=== PATIENT | female | born 1970 | race Caucasian/White ===

== ENCOUNTER 2023-08-20 09:50 | Outpatient (OUT) | payer OTHER, SELFPAY ==
--- NOTE | 2023-08-20 09:52 | MM_ITS ---
Patient: PEDRO LUNA Exam Date: 08/20/2023 : 1970 Gender:F Ordering : DOM Leon . Admission #: [id number] Family : Order #: [id number] CLICK HERE TO VIEW EXAM RADIOLOGY REPORT PROCEDURE: MM TOMOSYNTHESIS DIAGNOSTIC BI COMPARISON: MG MAMM DIAGNOSTIC 3D KAREY CAD, 08/08/2021. MG MAMM DX 3D RT CAD, 02/06/2022. INDICATIONS: Breast Pain N64.4 Calculator Name NCI Breast Cancer Risk Assessment Tool 5 Year Breast Cancer Risk 1.10% Lifetime Breast Cancer Risk 10.50% Personal Breast Cancer No Personal Ovarian Cancer No Treatments None Family Cancers Aunt-maternal with breast cancer at age 52; Mother with ovarian cancer at age 32; Father with colon cancer at age 48; Grandfather-paternal with brain cancer at age 80; Brother with lung cancer at age 48. LOCATION: [facility] BREAST COMPOSITION: Heterogeneously dense,which may obscure small masses. FINDINGS: DIAGNOSTIC CATEGORY 2--BENIGN FINDING. NO CHANGE FROM COMPARISON. Scattered benign-appearing nodules are present. Scattered benign-appearing calcifications are present. Scattered benign-appearing lymph nodes are present. RIGHT BREAST: No significant suspicious finding. LEFT BREAST: No significant suspicious finding. RECOMMENDATIONS: ROUTINE MAMMOGRAM AND CLINICAL EVALUATION IN 12 MONTHS. PLEASE NOTE: A NORMAL MAMMOGRAM DOES NOT EXCLUDE THE POSSIBILITY OF BREAST CANCER. A CLINICALLY SUSPICIOUS PALPABLE LUMP SHOULD BE BIOPSIED. Dictated by: Johan Agudelo MD on 08/20/2023 at 10:29 Approved by: Johan Agudelo MD on 08/20/2023 at 10:31
== END 2023-08-20 09:51 | disposition home or self-care (01) ==
LOC: MAMMO 09:50
PROVIDERS: PCP Physician Assistant; Visit Provider Physician Assistant
DX: N64.4 Mastodynia (principal)
CPT/HCPCS: 77066; G0279

== ENCOUNTER 2025-01-05 19:17 | Emergency (ER) | payer OTHER, SELFPAY ==
[2025-01-05 19:34] VITALS: BP 126/79; PULSE 85; TEMP 36.7; O2SAT 97; BMI 31.9
--- NOTE | 2025-01-05 20:49 | ED_ITS ---
HPI HPI - Extremity Injury (Lower) General Chief Complaint: Extremity Injury, Lower Stated Complaint: right foot pain Time Seen by Provider: 01/05/25 19:42 Source: patient Mode of arrival: walk-in Limitations: no limitations History of Present Illness HPI Narrative: 54-year-old female presents for right fourth toe pain. This morning she hit it on a part of the structure of her deck at home. It has been hurting all day and she tried some ice. No other injury was sustained. Related Data Previous Rx's ?Medication ?Instructions ?Recorded ibuprofen 800 mg tablet 800 mg PO Q8H PRN pain #20 tabs 01/05/25 Allergies Allergy/AdvReac Type Severity Reaction Status Date / Time Sulfa (Sulfonamide AdvReac Intermediate Nausea Verified 01/05/25 19:39 Antibiotics) Opioid HPI Opioid Management Most Recent Pain and Opioid Data: No Data to Display Review of Systems ROS Narrative A ten point review of systems is negative except as noted above. PFSH PFSH Social History Little interest or pleasure in doing things: not at all Feeling down, depressed, or hopeless: not at all Exam Narrative Exam Narrative: Nurses note and vital signs reviewed and patient is not hypoxic. General: The patient appears well and in no apparent distress. Patient is resting comfortably on cart. Skin: Warm, dry, no pallor noted. There is no rash noted. Head: Normocephalic, atraumatic Eye: Normal conjunctiva, no drainage Ears, Nose, Mouth, and Throat: oral mucosa is moist. Nares patent. Cardiovascular: Regular Rate and Rhythm Respiratory: Patient is in no distress, no accessory muscle use, lungs are clear to auscultation, no wheezing, rales or rhonchi GI: Nontender Musculoskeletal: The right foot is examined. There is no swelling or erythema on the dorsum of her foot. She has some swelling and tenderness at the fourth toe. Skin intact. Neurological: A&O, normal speech Psychiatric: Cooperative Constitutional Vital Signs, click to edit/add: Last Vital Signs Temp 98.1 F 01/05/25 19:34 Pulse 85 01/05/25 19:34 Resp 18 01/05/25 19:34 BP 126/79 01/05/25 19:34 Pulse Ox 97 01/05/25 19:34 O2 Del Method Room Air 01/05/25 19:34 Course Vital Signs Vital signs: Vital Signs Temperature 98.1 F 01/05/25 19:34 Pulse Rate 85 01/05/25 19:34 Respiratory Rate 18 01/05/25 19:34 Blood Pressure 126/79 01/05/25 19:34 Pulse Oximetry 97 01/05/25 19:34 Oxygen Delivery Method Room Air 01/05/25 19:34 Temperature 98.1 F 01/05/25 19:34 Pulse Rate 85 01/05/25 19:34 Respiratory Rate 18 01/05/25 19:34 Blood Pressure 126/79 01/05/25 19:34 Pulse Oximetry 97 01/05/25 19:34 Oxygen Delivery Method Room Air 01/05/25 19:34 MDM - Extremity Injury (Lower) MDM Narrative Medical decision making narrative: X-rays per radiologist show no acute findings. Postop shoe applied, application checked by me and found to be appropriate, she is neurovascular intact and she was prescribed ibuprofen. Treatment diagnosis and follow-up were discussed with the patient. Differential Diagnosis Differential diagnosis: Likely fracture of toe and other (Toe sprain) Imaging Data Right foot: Radiologist's impression: No acute fracture or dislocation, dorsal soft tissue swelling overlying the metatarsal bones, mild soft tissue swelling noted to surround the phalanges of the right fourth toe Discharge Plan Discharge Chief Complaint: Extremity Injury, Lower Clinical Impression: Sprain of fourth toe of right foot Patient Disposition: Home, Self-Care Time of Disposition Decision: 20:48 Condition: Good Mode of Transportation: Private Vehicle Prescriptions / Home Meds: New ibuprofen 800 mg tablet 800 mg PO Q8H PRN (Reason: pain) Qty: 20 0RF Print Language: [place] Instructions: Sprain (ED) Referrals: Isaiah Jones MD [Primary Care Provider] - 1 week
== END 2025-01-05 21:00 | disposition home or self-care (01) ==
PROVIDERS: Emergency Provider Emergency Medicine; PCP Family Medicine
DX: S93.504A Unspecified sprain of right lesser toe(s), initial encounter (principal); W22.09XA Striking against other stationary object, initial encounter
CPT/HCPCS: 73630; 99283

== ENCOUNTER 2025-02-09 08:33 | Outpatient (OUT) | payer OTHER, SELFPAY ==
--- NOTE | 2025-02-09 08:45 | MM_ITS ---
Patient Name: PEDRO LUNA MR#: [id number] : 1970 Exam Date: 02/09/2025 Ordering Doctor: DOM Leon . RADIOLOGY REPORT PROCEDURE: MM TOMOSYNTHESIS SCREENING BI COMPARISON: MM TOMOSYNTHESIS DIAGNOSTIC BI, 08/20/2023. MG MAMM SCREEN KAREY W CAD, 03/12/2013. INDICATIONS: Screening Calculator Name NCI Breast Cancer Risk Assessment Tool 5 Year Breast Cancer Risk 1.20% Lifetime Breast Cancer Risk 10.20% Personal Breast Cancer No Personal Ovarian Cancer No Treatments None Family Cancers Aunt-maternal with breast cancer at age 52; Mother with ovarian cancer at age 32; Father with colon cancer at age 48; Grandfather-paternal with brain cancer at age 80; Brother with lung cancer at age 48. LOCATION: [facility] BREAST COMPOSITION: The breasts are heterogeneously dense,which may obscure small masses. FINDINGS: RIGHT BREAST: No significant suspicious finding. LEFT BREAST: No significant suspicious finding. DIAGNOSTIC CATEGORY 1--NEGATIVE. RECOMMENDATIONS: ROUTINE MAMMOGRAM AND CLINICAL EVALUATION IN 12 MONTHS. PLEASE NOTE: A NORMAL MAMMOGRAM DOES NOT EXCLUDE THE POSSIBILITY OF BREAST CANCER. A CLINICALLY SUSPICIOUS PALPABLE LUMP SHOULD BE BIOPSIED. Dictated by: Jim Buck DO on 02/09/2025 at 09:26 Approved by: Jim Buck DO on 02/09/2025 at 09:30
== END 2025-02-09 08:34 | disposition home or self-care (01) ==
LOC: MAMMO 08:33
PROVIDERS: PCP Family Medicine; Visit Provider Physician Assistant
DX: Z12.31 Encounter for screening mammogram for malignant neoplasm of breast (principal); Z80.3 Family history of malignant neoplasm of breast; Z80.41 Family history of malignant neoplasm of ovary; Z80.0 Family history of malignant neoplasm of digestive organs; Z80.8 Family history of malignant neoplasm of other organs or systems; Z80.1 Family history of malignant neoplasm of trachea, bronchus and lung
CPT/HCPCS: 77063; 77067

== ENCOUNTER 2025-02-15 19:24 | Outpatient (REF) | payer OTHER, SELFPAY ==
[2025-02-18 13:08] LABS: Age Gdln ACOG Testing Note (.); HPV Aptima Negative (Negative); IGP, Aptima HPV, rfx 16/18,45 Note (.)
== END 2025-02-15 19:25 | disposition home or self-care (01) ==
LOC: LAB 19:24
PROVIDERS: PCP Family Medicine; Visit Provider Nurse Practitioner Family
DX: Z01.419 Encounter for gynecological examination (general) (routine) without abnormal findings (principal)
CPT/HCPCS: 87624; 88175

== ENCOUNTER 2025-04-04 09:58 | Outpatient (OUT) | payer OTHER, SELFPAY ==
--- OUTSIDE RECORDS SUMMARY | 2025-04-04 10:03 | XMS_ITS | Encounter Summary ---
Author Organization [facility] Address [address] [place] [address] Care Team Providers Care Body Design Checker Name Role Phone Isaiah Jones MD Primary Care Provider [phone] Silvestre Washburn Unavailable [phone] Richard Parekh MD Unavailable Source Comments In the event this information is protected by the Federal Confidentiality of Alcohol and Drug AbusePatient Records regulations: The Federal rules restrict any use of the information to criminally investigate or prosecute any alcohol or drug abuse patient.[facility] Encounter Details Date Type Department Care Team (Late st Contact Info) Description 06/01/2024 Patient Msg Neurology [address] [place] [address] Provider, [facility] Botox Outreach Social History Tobacco Use Types Packs/Day Years Used Date Smoking Tobacco: Never Smokeless Tobacco: Never Alcohol Use Standard Drinks/Week Comments No 0 (1 standard drink = 0.6 oz pur e alcohol) PHQ-2 Answer Date Recorded PHQ-2 score 6 04/27/2024 Area Deprivation Index Answer Date Alvino rded National Score (1-100), lower number is lower ri sk Not on file 09/27/2020 State Score (1-10), lower number is lower risk N ot on file 09/27/2020 Data from: https://www.neighborhoodatlas.medicine.[place]/. Last address used for calculation Not on file 09/27/2020 Comments No Sex and Gender Information Value Date Recorded Sex Assigned at Not on file Legal Sex Female 11:13 AM EST Gender Identity Not on file Sexual Orientation Not on file Occupation Industry Job Start Date Job End Date Disabled Not on file Not on file Not on file documented as of this encounter Functional Status * Are you deaf or do you have serious difficulty hearing? Answer Date of Assessment Author No 11/01/2015 11:50 AM Tre Mcleod on K * Are you blind or do you have serious difficulty seeing, even when wearing glasses? Answer Date of Assessment Author No 11/01/2015 11:50 AM Tre Mcleod on K * Do you have serious difficulty walking or climbing stairs? Answer Date of Assessment Author Yes 11/01/2015 11:50 AM Tre Mcleod on K * Do you have difficulty dressing or bathing? Answer Date of Assessment Author Yes 11/01/2015 11:50 AM Tre Mcleod on K * Because of a physical, mental, or emotional condition, do you have difficulty doing errands alone such as visiting a doctor's office or shopping? Answer Date of Assessment Author Yes 11/01/2015 11:50 AM Tre Mcleod on K documented as of this encounter Mental Status * Because of a physical, mental, or emotional condition, do you have serious difficulty concentrating, remembering, or making decisions? Answer Entry Date Author Yes 11/01/2015 11:50 AM Tre Mcleod on K documented in this encounter Plan of Treatment Upcoming Encounters Date Type Department Care Team (Late st Contact Info) Description 04/18/2025 9:00 AM EDT Office Visit Rheumatology [address] [place] [address] Parul Turcios MD [address] [place] [address] /fibro fu OV 6-12months. 05/09/2025 9:00 AM EDT Office Visit Allergy [address] [place] [phone] Kaia Ansari MD [address] [place] [address] Return in about 6 months (around 05/08/2025). 06/15/2025 9:30 AM EDT Office Visit Cardiology [address] [id number] Seda Solorio APRN.NUCLEAR FUELS RESEARCH ENGINEER [address] [place] [address] 1 yr f/u documented as of this encounter Visit Diagnoses Not on filedocumented in this encounter Care Teams Body Design Checker Relationship Specialty Start Date End Date Isaiah Jones MD PCP - General Family Medicine 09/26/15 Silvestre Washburn Referring Podiatry 10/31/15 [place] [address] [place], [place] [phone] Club Concierge Cardiology 06/16/24 documented as of this encounter
--- OUTSIDE RECORDS SUMMARY | 2025-04-04 10:03 | XMS_ITS | Encounter Summary ---
Author Organization [facility] Address [address] [place] [address] Care Team Providers Care Securities Compliance Examiner Name Role Phone Isaiah Jones MD Primary Care Provider [phone] Silvestre Washburn Unavailable [phone] Farnaz Church Unavailable Unavailable Richard Parekh MD Unavailable [phone] Source Comments In the event this information is protected by the Federal Confidentiality of Alcohol and Drug AbusePatient Records regulations: The Federal rules restrict any use of the information to criminally investigate or prosecute any alcohol or drug abuse patient.[facility] Encounter Details Date Type Department Care Team (Late st Contact Info) Description 07/29/2016 Patient Msg Pain Management [address] [place], [place] [phone] [place] [address] [address] [place] [address] RE: Appointment Cancellation Request Social History Tobacco Use Types Packs/Day Years Used Date Smoking Tobacco: Never Smokeless Tobacco: Never Alcohol Use Standard Drinks/Week Comments No 0 (1 standard drink = 0.6 oz pur e alcohol) Comments No Sex and Gender Information Value [...] 9:00 AM EDT Office Visit Rheumatology [address] [place] [address] Parul Turcios MD [address] [place] [address] /daniela camilo OV 6-12months. 05/09/2025 9:00 AM EDT Office Visit Allergy [address] [place] [phone] Kaia Ansari MD [address] [place] [address] Return in about 6 months (around 05/08/2025). 06/15/2025 9:30 AM EDT Office Visit Cardiology [address] [place] [address] Seda Solorio APRN.[facility] [address] [place] [address] 1 yr f/u documented as of this encounter Visit Diagnoses Not on filedocumented in this encounter Care Teams Securities Compliance Examiner Relationship Specialty Start Date End Date Isaiah Jones MD PCP - General Family Medicine 09/26/15 Silvestre Washburn Referring Podiatry 10/31/15 Farnaz Church LISW Family Resource Specialist Primary Care 04/02/24 04/06/24 [place] [address] [place] [address] Joint Runner Cardiology 06/16/24 documented as of this encounter
--- OUTSIDE RECORDS SUMMARY | 2025-04-04 10:03 | XMS_ITS | Encounter Summary ---
Author Organization [facility] Address [address] [place] [address] Care Team Providers Care Business Transformation Consultant Name Role Phone Isaiah Jones MD Primary Care Provider [phone] Silvestre Washburn Unavailable [phone] Richard Parekh MD Unavailable [phone] Source Comments In the event this information is protected by the Federal Confidentiality of Alcohol and Drug AbusePatient Records regulations: The Federal rules restrict any use of the information to criminally investigate or prosecute any alcohol or drug abuse patient.[facility] Encounter Details Date Type Department Care Team (Late st Contact Info) Description 06/04/2024 Patient Msg Cardiology [address] [facility] [place] [address] Provider, Ccf Cardiology Appointment Reschedule Social History Tobacco Use Types Packs/Day Years [...] N ot on file 09/27/2020 Data from: https://www.neighborhoodatlas.medicine.[facility]/. Last address used for calculation Not on [...] Visit Rheumatology [address] [place] [address] Parul Turcios MD [address] [place] [address] /fibro fu OV 6-12months. 05/09/2025 9:00 AM EDT Office Visit Allergy [address] [place] [phone] Kaia Ansari MD [address] [place] [address] Return in about 6 months (around 05/08/2025). 06/15/2025 9:30 AM EDT Office Visit Cardiology [address] [phone] Seda Solorio APRN.GRAB OPERATOR [address] [place] [address] 1 yr f/u documented as of this encounter Visit Diagnoses Not on filedocumented in this encounter Care Teams Business Transformation Consultant Relationship Specialty Start Date End Date Isaiah Jones MD PCP - General Family Medicine 09/26/15 Silvestre Washburn Referring Podiatry 10/31/15 [place] [address] [place], [place] [phone] Sequins Winder Cardiology 06/16/24 documented as of this encounter
--- OUTSIDE RECORDS SUMMARY | 2025-04-04 10:03 | XMS_ITS | Encounter Summary ---
Author Organization [facility] Address [address] [place] [address] Care Team Providers Care Game Tester Name Role Phone Isaiah Jones MD Primary Care Provider [phone] Silvestre Washburn Unavailable [phone] Farnaz Church Unavailable Unavailable Richard Parekh MD Unavailable [phone] Source Comments In the event this information is protected by the Federal Confidentiality of Alcohol and Drug AbusePatient Records regulations: The Federal rules restrict any use of the information to criminally investigate or prosecute any alcohol or drug abuse patient.[facility] Encounter Details Date Type Department Care Team (Late st Contact Info) Description 09/25/2022 Patient Msg Allergy [address] [place] [phone] Kaia Ansari MD [facility] [place] [address] lab results Social History Tobacco Use Types Packs/Day Years Used Date Smoking Tobacco: Never Smokeless Tobacco: Never Alcohol Use Standard Drinks/Week Comments No 0 (1 standard drink = 0.6 oz pur e alcohol) Area Deprivation Index Answer Date Alvino rded National Score (1-100), lower number is lower ri sk Not on file 09/27/2020 State Score (1-10), lower number is lower risk N ot on file 09/27/2020 Data from: https://www.neighborhoodatlas.medicine.[facility]/. Last address used for calculation Not on file 09/27/2020 Comments No Sex and Gender Information Value Date Recorded Sex Assigned at Not on file Legal Sex Female 11:13 AM EST Gender Identity Not on file Sexual Orientation Not on file Occupation Industry Job Start Date Job End Date Disabled Not on file Not on file Not on file COVID-19 Exposure Response Date Recorded In the last 10 days, have yo u been in contact with someone who was confirmed or suspected to have Coronavirus/COVID-19? No / Unsure 09/18/2022 2:10 PM EST documented as of this encounter Functional Status [...] 9:00 AM EDT Office Visit Rheumatology [address] [facility] [address] Parul Turcios MD [address] [facility] [place] [place] [address] /fibro fu OV 6-12months. 05/09/2025 9:00 AM EDT Office Visit Allergy [address] [facility] [address] Kaia Ansari MD [address] [place] [address] Return in about 6 months (around 05/08/2025). 06/15/2025 9:30 AM EDT Office Visit Cardiology [address] [place] [address] Seda Solorio APRN.[facility] [address] [place], [place] [address] 1 yr f/u documented as of this encounter Visit Diagnoses Not on filedocumented in this encounter Care Teams Game Tester Relationship Specialty Start Date End Date Isaiah Jones MD PCP - General Family Medicine 09/26/15 Silvestre Washburn Referring Podiatry 10/31/15 Farnaz Church LISW Production Ski Repairer Primary Care 04/02/24 04/06/24 [place] [address] [place] [address] Data Compiler Cardiology 06/16/24 documented as of this encounter
--- OUTSIDE RECORDS SUMMARY | 2025-04-04 10:04 | XMS_ITS | Encounter Summary ---
Author Organization [facility] Address [address] [place] [address] Care Team Providers Care Certified Driver Examiner Name Role Phone Isaiah Jones MD Primary Care Provider [phone] Silvestre Washburn Unavailable [phone] Farnaz Church Unavailable Unavailable Richard Parekh MD Unavailable [phone] Source Comments In the event this information is protected by the Federal Confidentiality of Alcohol and Drug AbusePatient Records regulations: The Federal rules restrict any use of the information to criminally investigate or prosecute any alcohol or drug abuse patient.[facility] Encounter Details Date Type Department Care Team (Late st Contact Info) Description 04/14/2018 Patient Msg Pediatrics [place] [address] [place] [address] Provider, Justin Two year Thyroid follow up Social History Tobacco Use Types Packs/Day Years [...] 9:00 AM EDT Office Visit Rheumatology [address] [place] [address] Parul Turcios MD [address] [place] [address] /fibro fu OV 6-12months. 05/09/2025 9:00 AM EDT Office Visit Allergy [address] [place] [address] Kaia Ansari MD [address] [place] [address] Return in about 6 months (around 05/08/2025). 06/15/2025 9:30 AM EDT Office Visit Cardiology [address] [place] [address] Seda Solorio APRN.[facility] [address] [place] [address] 1 yr f/u documented as of this encounter Visit Diagnoses Not on filedocumented in this encounter Care Teams Certified Driver Examiner Relationship Specialty Start Date End Date Isaiah Jones MD PCP - General Family Medicine 09/26/15 Silvestre Washburn Referring Podiatry 10/31/15 Farnaz Church LISW Manager Intranet Primary Care 04/02/24 04/06/24 [place] [address] [place] [address] It Systems Analyst Consultant Cardiology 06/16/24 documented as of this encounter
--- OUTSIDE RECORDS SUMMARY | 2025-04-04 10:04 | XMS_ITS | Clinical Summary ---
Author Organization [facility] Address [address] [place] [address] Phone Care Team Providers Care Roller Presser Operator Name Role Phone Unavailable Primary Care Provider Unavailabl e Encounters Date Type Department Care Team Description 03/03/2025 Transcribe Orders [facility] [address] [place] [address] Richard Parekh MD Encounter for screening for cardiovascular disorders (Primary Dx) from Last 3 Months Social History Tobacco Use Types Packs/Day Years Used Date Smoking Tobacco: Never Assessed Comments Unknown Sex and Gender Information Value Date Recorded Sex Assigned at Not on file Legal Sex Female 2:57 PM EDT Gender Identity Not on file Sexual Orientation Not on file Plan of Treatment Upcoming Encounters Date Type Department Care Team (Late st Contact Info) Description 04/20/2025 7:30 PM EDT Appointment [address] [phone] Health Maintenance Due Date Last Done Comments CT Colonography 1972 Colonoscopy 1972 Colorectal Cancer Screening 1972 FIT-DNA (Cologuard) 1972 FIT 1972 HIV Screening 1972 Lipid Panel 1972 Sigmoidoscopy 1972 Yearly Adult Physical 1972 MMR Vaccines (1 of 1 - Stand kenny series) 1973 Hepatitis C Screening 1990 Hepatitis B Vaccines (1 of 3 - 19+ 3-dose series) 1991 Cervical Cancer Screening 1993 HPV/Cotest 1993 Pap Smear 1993 DTaP/Tdap/Td Vaccines (1 - Tdap) 1994 Mammogram 2012 Pneumococcal Vaccine (1 of 1 - PCV) 2022 Zoster Vaccines (1 of 2) 2022 COVID-19 Vaccine (1 - 2023-2 5 season) 2024 Influenza Vaccine (Season Ended) 2025 HIB Vaccines Aged Out No longer eligi ble based on patient's age to complete this topic HPV Vaccines Aged Out No longer eligi ble based on patient's age to complete this topic Hepatitis A Vaccines Aged Out No long er eligible based on patient's age to complete this topic IPV Vaccines Aged Out No longer eligi ble based on patient's age to complete this topic Meningococcal Vaccine Aged Out No gentry cathleen eligible based on patient's age to complete this topic Rotavirus Vaccines Aged Out No longer eligible based on patient's age to complete this topic Insurance
--- OUTSIDE RECORDS SUMMARY | 2025-04-04 10:04 | XMS_ITS | Encounter Summary ---
Author Organization [facility] Address [address] [place] [address] Care Team Providers Care Operating Room Coordinator Name Role Phone Isaiah Jones MD Primary Care Provider [phone] Silvestre Washburn Unavailable [phone] Farnaz Church Unavailable Unavailable Richard Parekh MD Unavailable [phone] Source Comments In the event this information is protected by the Federal Confidentiality of Alcohol and Drug AbusePatient Records regulations: The Federal rules restrict any use of the information to criminally investigate or prosecute any alcohol or drug abuse patient.[facility] Encounter Details Date Type Department Care Team (Late st Contact Info) Description 05/20/2023 Patient Msg Gastroenterology [address] [place] [phone] ProviderJustin EGTre 05/27 please arrive at 9am Social History Tobacco Use Types Packs/Day Years [...] N ot on file 09/27/2020 Data from: https://www.neighborhoodatlas.medicine.[facility].edu/. Last address used for calculation Not on [...] Visit Rheumatology [address] [place] [address] Parul Turcios MD [address] [place] [address] /fibro fu OV 6-12months. 05/09/2025 9:00 AM EDT Office Visit Allergy [address] [place] [address] Kaia Ansari MD [address] [place], [place] [phone] Return in about 6 months (around 05/08/2025). 06/15/2025 9:30 AM EDT Office Visit Cardiology [address] [place], [place] [phone] Seda Solorio APRN.TOMOGRAPHIC TECH [address] [place] [address] 1 yr f/u documented as of this encounter Visit Diagnoses Not on filedocumented in this encounter Care Teams Operating Room Coordinator Relationship Specialty Start Date End Date Isaiah Jones MD PCP - General Family Medicine 09/26/15 Silvestre Washburn Referring Podiatry 10/31/15 Farnaz Church LISW Manager Epic Primary Care 04/02/24 04/06/24 [place] [address] [place], [place] [phone] Group Fitness Instructor Cardiology 06/16/24 documented as of this encounter
--- OUTSIDE RECORDS SUMMARY | 2025-04-04 10:04 | XMS_ITS | Encounter Summary ---
Author Organization [facility] Address [facility] [place] [address] Care Team Providers Care Spin Table Operator Name Role Phone Isaiah Jones MD Primary Care Provider [phone] Silvestre Washburn Unavailable [phone] Farnaz Church Unavailable Unavailable Richard Parekh MD Unavailable [phone] Source Comments In the event this information is protected by the Federal Confidentiality of Alcohol and Drug AbusePatient Records regulations: The Federal rules restrict any use of the information to criminally investigate or prosecute any alcohol or drug abuse patient.[facility] Encounter Details Date Type Department Care Team (Late st Contact Info) Description 01/10/2016 Patient Msg Neurology [address] [place], [place] [id number] Nicole Robles(Hist) [facility]0 [place] [phone] RE: Request an Appointment Social History Tobacco Use Types Packs/Day Years [...] 9:00 AM EDT Office Visit Rheumatology [address] [place] [address] Parul Turcios MD [address] [place] [address] /fibro fu OV 6-12months. 05/09/2025 9:00 AM EDT Office Visit Allergy [address] [place] [phone] Kaia Ansari MD [address] [place] [address] Return in about 6 months (around 05/08/2025). 06/15/2025 9:30 AM EDT Office Visit Cardiology [address] [place] [address] Seda Solorio APRN.[facility] [address] [place] [address] 1 yr f/u documented as of this encounter Visit Diagnoses Not on filedocumented in this encounter Care Teams Spin Table Operator Relationship Specialty Start Date End Date Isaiah Jones MD PCP - General Family Medicine 09/26/15 Silvestre Washburn Referring Podiatry 10/31/15 Farnaz Church LISW Electric Tripper Machine Operator Primary Care 04/02/24 04/06/24 [place] [address] [place] [address] Library Paraprofessional Cardiology 06/16/24 documented as of this encounter
--- OUTSIDE RECORDS SUMMARY | 2025-04-04 10:04 | XMS_ITS | Encounter Summary ---
Author Organization [facility] Address [address] [place] [address] Care Team Providers Care Market News Reporter Name Role Phone Isaiah Jones MD Primary Care Provider [phone] Silvestre Washburn Unavailable [phone] Farnaz Church Unavailable Unavailable Richard Parekh MD Unavailable [phone] Source Comments In the event this information is protected by the Federal Confidentiality of Alcohol and Drug AbusePatient Records regulations: The Federal rules restrict any use of the information to criminally investigate or prosecute any alcohol or drug abuse patient.[facility] Encounter Details Date Type Department Care Team (Late st Contact Info) Description 05/05/2023 [place] [address] Provider, [facility] MRI Screening Questionnaire Completion Required Social History Tobacco Use Types Packs/Day Years Used Date Smoking Tobacco: Never Smokeless Tobacco: Never Alcohol Use Standard Drinks/Week Comments No 0 (1 standard drink = 0.6 oz pur e alcohol) Area Deprivation Index Answer Date Alvino rded National Score (1-100), lower number is lower ri Not on file 09/27/2020 State Score (1-10), lower number is lower risk N ot on file 09/27/2020 Data from: https://www.neighborhoodatlas.[facility].edu/. Last address used for calculation Not on [...] of Assessment Author No 11/01/2015 11:50 AM Ter M[place] on K * Do you have [...] 9:00 AM EDT Office Visit Rheumatology [address] [place] [address] Parul Turcios MD [address] [facility] [address] /fibro fu OV 6-12months. 05/09/2025 9:00 AM EDT Office Visit Allergy [address] [place] [phone] Kaia Ansari MD [address] [place], [place] [phone] Return in about 6 months (around 05/08/2025). 06/15/2025 9:30 AM EDT Office Visit Cardiology [address] [place], [place] [phone] Seda Solorio APRN.[facility] [address] [place], [place] [id number] 1 yr f/u documented as of this encounter Visit Diagnoses Not on filedocumented in this encounter Care Teams Market News Reporter Relationship Specialty Start Date End Date Isaiah Jones MD PCP - General Family Medicine 09/26/15 Silvestre Washburn Referring Podiatry 10/31/15 Farnaz Church LISW Youth Leader Primary Care 04/02/24 04/06/24 [place] [address] [place] [address] Department Clerk Cardiology 06/16/24 documented as of this encounter
--- OUTSIDE RECORDS SUMMARY | 2025-04-04 10:04 | XMS_ITS | Encounter Summary ---
Author Organization [facility] Address [address] [place] [address] Care Team Providers Care Insurance Legal Assistant Name Role Phone Isaiah Jones MD Primary Care Provider [phone] Silvestre Washburn Unavailable [phone] Farnaz Church Unavailable Unavailable Richard Parekh MD Unavailable Source Comments In the event this information is protected by the Federal Confidentiality of Alcohol and Drug AbusePatient Records regulations: The Federal rules restrict any use of the information to criminally investigate or prosecute any alcohol or drug abuse patient.[facility] Encounter Details Date Type Department Care Team (Late st Contact Info) Description 03/25/2024 Patient Msg Family Medicine [address] [place], [place] [phone] Provider, [facility] Appointment Reschedule Required-Provider Out Sick Social History Tobacco Use Types Packs/Day Years Used Date Smoking Tobacco: Never Smokeless Tobacco: Never Alcohol Use Standard Drinks/Week Comments No 0 (1 standard drink = 0.6 oz pur e alcohol) PHQ-2 Answer Date Recorded PHQ-2 score 3 12/24/2023 Area Deprivation Index Answer Date Alvino rded National Score (1-100), lower number is lower ri sk Not on file 09/27/2020 State Score (1-10), lower number is lower risk N ot on file 09/27/2020 Data from: https://www.neighborhoodatlas.medicine.[facility]/. Last address used for calculation Not [...] EDT Office Visit Rheumatology [address] [place] [address] Parul Turcios MD [address] [place] [address] /daniela camilo OV 6-12months. 05/09/2025 9:00 AM EDT Office Visit Allergy [address] [place] [phone] Kaia Ansari MD [facility] [place] [address] Return in about 6 months (around 05/08/2025). 06/15/2025 9:30 AM EDT Office Visit Cardiology [address] [place], [place] [phone] Seda Solorio, PASCALE.HEARING DOG TRAINER [address] [place], [place] [phone] 1 yr f/u documented as of this encounter Visit Diagnoses Not on filedocumented in this encounter Care Teams Insurance Legal Assistant Relationship Specialty Start Date End Date Isaiah Jones MD PCP - General Family Medicine 09/26/15 Silvestre Washburn Referring Podiatry 10/31/15 Farnaz Church LISW Butcher Scullion Primary Care 04/02/24 04/06/24 [place] [address] [place] [address] Blanket Folder Cardiology 06/16/24 documented as of this encounter
--- OUTSIDE RECORDS SUMMARY | 2025-04-04 10:04 | XMS_ITS | Encounter Summary ---
Author Organization [facility] Address [address] [place] [address] Care Team Providers Care Hydroelectric Station Operator Chief Name Role Phone Isaiah Jones MD Primary Care Provider [phone] Silvestre Washburn Unavailable [phone] Farnaz Church Unavailable Unavailable Richard Parekh MD Unavailable [phone] Source Comments In the event this information is protected by the Federal Confidentiality of Alcohol and Drug AbusePatient Records regulations: The Federal rules restrict any use of the information to criminally investigate or prosecute any alcohol or drug abuse patient.[facility] Encounter Details Date Type Department Care Team (Late st Contact Info) Description 04/11/2023 Patient Msg Gastroenterology [address] [place] [phone] Abraham Velasco MD [address] [place] [address] lab results Social History Tobacco Use Types [...] N ot on file 09/27/2020 Data from: https://www.neighborhoodatlas.medicine.[facility]/. Last address used for calculation [...] 9:00 AM EDT Office Visit Rheumatology [address] [facility] [place] [address] Parul Turcios MD [address] [facility] [address] [place] [phone] /fibro fu OV 6-12months. 05/09/2025 9:00 AM EDT Office Visit Allergy [address] [place] [phone] Kaia Ansari MD [address] [place] [address] Return in about 6 months (around 05/08/2025). 06/15/2025 9:30 AM EDT Office Visit Cardiology [address] [place], [place] [phone] Seda Solorio APRN.PRODUCTION TEAM MEMBER [address] [place], [place] [phone] 1 yr f/u documented as of this encounter Visit Diagnoses Not on filedocumented in this encounter Care Teams Hydroelectric Station Operator Chief Relationship Specialty Start Date End Date Isaiah Jones MD PCP - General Family Medicine 09/26/15 Silvestre Washburn Referring Podiatry 10/31/15 Farnaz Church LISW Defect Cutter Primary Care 04/02/24 04/06/24 [place] [address] [place] [address] Vp Integrity Cardiology 06/16/24 documented as of this encounter
--- OUTSIDE RECORDS SUMMARY | 2025-04-04 10:04 | XMS_ITS | Clinical Summary ---
Author Organization [facility] Address [id number] [address] [place] [address] Care Team Providers Care Pediatric Nurse Practitioner Name Role Phone Isaiah Jones MD Primary Care Provider [phone] Allergies Active Allergy Reactions Criticality Noted Date Comments Betamethasone Dipropionate Other reaction(s): GI Upset Chicken Derived 11/26/2021 Other reaction(s): Other: See Comments states throat closes up Egg 11/26/2021 Other reaction(s): Other: See Comments states throat closes up Sulfa (Sulfonamide Antibiotics) GI Disturbance 04/15/2017 Abd Pain Medications ergocalciferol (DRISDOL) 1,250 mcg (50,000 unit) capsule Take 1 capsule (50,000 Units total) by mouth once a week. 02/10/2017 Active magnesium oxide (MAGOX) 400 mg tablet Take 1 tablet (400 mg total) by mouth in the morning. 03/04/2017 Active sucralfate (CARAFATE) 1 gram tablet 5 01/22/2018 Active pantoprazole (PROTONIX) 40 mg EC tablet 5 01/21/2018 Active gabapentin (NEURONTIN) 300 mg capsule 5 01/22/2018 Active fluticasone (FLONASE) 50 mcg/actuation nasal spray 5 01/15/2018 Active baclofen (LIORESAL) 10 mg tablet 5 01/08/2018 Active FIBER-LAX 625 mg tablet 5 01/01/2018 Active topiramate (TOPAMAX) 100 mg tablet Take 1 tablet (100 mg total) by mouth in the morning. 6 02/06/2018 Active venlafaxine XR (EFFEXOR-XR) 75 mg 24 hr capsule Take 1 capsule (75 mg total) by mouth in the morning. 01/20/2018 Active cholecalciferol (VITAMIN D3) 50,000 units capsule 5 12/28/2018 Active montelukast (SINGULAIR) 10 mg tablet Take 1 tablet (10 mg total) by mouth nightly. 4 03/10/2019 Active nabumetone (RELAFEN) 500 mg tablet Take 1 tablet (500 mg total) by mouth in the morning and 1 tablet (500 mg total) before bedtime. 5 03/10/2019 Active salsalate (DISALCID) 500 mg tabletIndication s:H/O Enedina thyroiditis TAKE 1 TABLET BY MOUTH TWICE DAILY 60 tablet 07/04/2020 Active amitriptyline (ELAVIL) 25 mg tablet Take 1 tablet (25 mg total) by mouth nightly. 07/26/2020 Active famotidine (PEPCID) 40 mg tablet 07/31/2020 Active PREMARIN 0.625 mg tablet Take 1 tablet (0.625 mg total) by mouth in the morning. 07/12/2021 Active levothyroxine (SYNTHROID, LEVOTHROID) 137 MCG tabletIndication s:Hypothyroidism , unspecified type TAKE 1 TABLET(137 MCG) BY MOUTH DAILY 30 tablet 5 08/26/2022 Active albuterol (PROVENTIL HFA;VENTOLIN HFA) 90 mcg/actuation inhaler 10/17/2022 Active fexofenadine (IZZY) 180 mg tablet Take 1 tablet (180 mg total) by mouth daily as needed. 09/18/2022 Active furosemide (LASIX) 40 mg tablet Take 1 tablet (40 mg total) by mouth daily as needed. 09/04/2022 Active rizatriptan (MAXALT) 10 mg tablet Take 1 tablet (10 mg total) by mouth. 11/26/2021 Active EPINEPHrine (EPIPEN) 0.3 mg/0.3 mL auto-injector 09/18/2022 Activ e Active Problems Problem Noted Date Diagnosed Date Left axillary pain 03/02/2025 Abnormal mammogram of left breast 03/02/2025 Encounters Date Type Department Care Team Description 03/16/2025 8:05 AM EDT - 03/16/2025 11:59 PM EDT Hospital Encounter [facility] - MRI Imaging [address] [place] [phone] Valeriy Castellano, Family history of breast cancer in sister; Abnormal mammogram of left breast; Left axillary pain Discharge Disposition: Home 03/16/2025 Telephone [facility] [address] [place] [phone] Loida Adan CMA 03/16/2025 Travel 03/02/2025 11:00 AM EDT Office Visit [facility] [address] [place] [phone] Valeriy Castellano, Left axillary pain (Primary Dx); Abnormal mammogram of left breast; Family history of breast cancer in sister; Family history of malignant neoplasm of ovary in first degree relative; Family history of colon cancer in father; History of fibromyalgia 03/02/[address] [facility] [address] [place] [phone] Whit Guerrier, [facility] (CLER[facility]) 03/02/2025 Travel 02/22/2025 9:30 AM EDT [facility]illary [facility] [employer] [address] [place] [phone] Pain 02/16/2025 9:48 PM EDT - 02/16/2025 10:17 PM EDT Emergency [facility] - Emergency [address] [place] [phone] Williams Moreno MD Acute bronchitis, unspecified organism (Primary Dx) Discharge Disposition: Home 02/16/2025 Travel 02/09/2025 8:40 AM EDT Ancillary Procedure [facility] [employer] [address] [place] [phone] Pain from Last 3 Months Family History Medical History Relation Name Comments Heart disease Brother 1 Carlos Heart disease Brother 2 Gray Lung cancer Brother 3 Fortino Taylor Learning disabilities Daughter Tayler Cancer Father Fortino nguyễn Colon cancer Father Fortino Cataracts Maternal Aunt 1 Nati Diabetes Maternal Aunt 1 Nati Arthritis Maternal Aunt 2 Nati Asthma Maternal Aunt 2 Nati Diabetes Maternal Aunt 2 Nati Hypertension Maternal Aunt 2 Nati Kidney disease Maternal Aunt 2 Nati Dialysis Breast cancer Maternal Aunt 3 Louvenia Hypertension Maternal Grandmother Shireen Cancer Mother Colette Pitts ovarian Heart disease Mother Colette Pitts Miscarriages / Stillbirths Mother Colette Bolivar nd Ovarian cancer Mother Colette Pitts Uterine cancer Mother Colette Pitts Mental illness Paternal Grandmother Sophie Patel Glaucoma Neg Hx Macular degeneration Neg Hx Retinal detachment Neg Hx Strabismus Neg Hx Relation Name Status Comments Brother 1 Carlos Alive Brother 2 Gray Alive Brother 3 Fortino Taylor Alive Daughter Tayler Alive Father Fortino Alive Maternal Aunt 1 Nati Maternal Aunt 2 Nati Alive Maternal Aunt 3 Louvenia Alive Maternal Grandmother Shireen Alive Mother Colette Pitts Paternal Grandmother Sophie Patel Alive Social History Tobacco Use Types Packs/Day Years Used Date Smoking Tobacco: Never Smokeless Tobacco: Never Tobacco Cessation:Counseling Given: Not Answered Alcohol Use Standard Drinks/Week Comments No 0 (1 standard drink = 0.6 oz pur e alcohol) PHQ-2 Answer Date Recorded Total Score 0 08/01/2021 Childcare Answer Date Recorded Childcare Unknown 03/24/2019 Employment Answer Date Recorded Employment Unknown 03/24/2019 Hunger Screening Answer Date Recorded Within the past 12 months we worried whether our food would run out before we got money to buy more. Never True 02/16/2025 Within the past 12 months th e food we bought just didn't last and we didn't have money to get more. Never True 02/16/2025 Purpose - Life Answer Date Recorded Purpose and direction in life Unknown Comments No Sex and Gender Information Value Date Recorded Sex Assigned at Female 07/21/2018 8:42 AM EDT Legal Sex Female 9:04 PM EDT Gender Identity Female 07/21/2018 8:42 AM EDT Sexual Orientation Straight 07/21/2018 8: 42 AM EDT Last Filed Vital Signs Vital Sign Reading Time Taken Comments Blood Pressure 179/95 02/16/2025 9:53 PM EDT Pulse 80 02/16/2025 9:53 PM EDT Temperature 36.9 C (98.4 F) 02/16/2025 9:53 PM EDT Respiratory Rate 16 02/16/2025 9:53 PM EDT Oxygen Saturation 96% 02/16/2025 9:53 PM EDT Inhaled Oxygen Concentration - - Weight 83.9 kg (185 lb) 03/16/2025 8:16 AM EDT Height 162.6 cm (5' 4 ) 03/02/2025 10:40 AM EDT Body Mass Index 31.76 03/02/2025 10:40 AM EDT Plan of Treatment Upcoming Encounters Date Type Department Care Team (Late st Contact Info) Description 04/14/2025 8:00 AM EDT Appointment [facility] - Radiation Oncology [address] [place] [address] Susanna Weller, [facility] [address] [address] Health Maintenance Due Date Last Done Comments Depression Screening 1984 Adult BMI Follow Up Plan 1990 DTaP,Tdap and Td Vaccines (1 - Tdap) 1991 Zoster (Shingles) Vaccine (1 of 2) 2022 Colonoscopy 02/14/2025 02/14/2022, 04/2 05/2022, 02/02/2018 Influenza Vaccine 06/20/2025 08/03/2024, , 08/09/2011 Tobacco Screening 03/02/2026 03/02/2025 Adult BMI Screening 03/16/2026 03/16/2025 Pap Smear Discontinued 02/15/2025, 08/06/2022 Medical Devices Not on file Procedures Procedure Name Priority Date/Time Associated Diagnosis Comments MR BREAST BILAT W WO CONT W CAD Routine 03/16/2025 8:45 AM EDT Family history of breast cancer in sister Abnormal mammogram of left breast Left axillary pain US BREAST LT LIMITED Routine 02/22/2025 9:30 AM EDT Pain SARS/FLU A+B/RSV BY NAAT/MOLECULAR (M4RT COLLECTION TUBE) STAT 02/16/2025 10:06 PM EDT MAMM SCREENING BILATERAL W CAD Routine 02/09/2025 8:40 AM EDT Pain COLONOSCOPY 02/14/2022 9:44 AM EDT from Last 3 Months or Most Recently Relevant to Health Maintenance Results * MR bilateral breast with and without contrast with CAD (03/16/2025 8:45 AM EDT) Anatomical Region Laterality Modality Breast Bilateral Magnetic Resonan ce 03/16/2025 10:0 4 AM EDT Narrative 03/16/2025 10:17 AM EDT ANNI FUNG 1970 [id number] EXAM: MR BREAST BILAT W WO CONT W CAD, 03/16/2025 8:16 AM INDICATION: Left axillary mass., COMPARISON: A screening mammogram was performed on 02/09/2025. This was done at outside facility, [facility]. Report of this examination is not available at this time. As this was a screening mammogram, presumably the patient was asymptomatic at that time. Patient had a bilateral axillary ultrasound at outside facility, [facility], dated 02/22/2025. At that time patient reported tenderness in the left axillary tail region. Report of that exam indicates possible abnormal lymph node 1:00 left axillary tail. TECHNIQUE: Breast images obtained utilizing a 1.5T MRI with dedicated breast coil. Three-dimensional, high resolution fat suppressed T1 weighted images were obtained prior to, immediately following, and after sequential delays relative to intravenous gadolinium contrast administration. Precontrast STIR and non-fat suppressed T1 axial images were also obtained. 3D image and subtraction processing were performed using [employer] software. The images were interpreted using image subtraction, reregistration, multiplanar reconstruction, 2D and 3D acquisition and subtracted MIP, HERLINDA, Time Activity curves and color mapping. CONTRAST VOLUME: 16.7 mL ProHance FINDINGS: There is mild background enhancement bilaterally, symmetric. The breast composition is heterogeneous fibroglandular tissue. There are numerous small foci of enhancement present diffusely throughout both breasts. The multiplicity and similarity of these foci suggest a benign proliferative process/background breast tissue enhancement. No dominant suspicious focus is present. Multiple small bilateral breast cysts are also noted. There are no dominant suspicious enhancing lesions and no significant axillary or internal mammary lymphadenopathy. The skin, nipples and chest wall are unremarkable. IMPRESSION: Normal examination. No evidence for breast cancer or other significant finding. BI-RADS: BI-RADS 1 - Negative Recommendation: Follow up with referring physician Finalized by Yaz Lau MD on 03/16/2025 10:17 AM 1 F/U REFER DR Procedure Note Yaz Lau MD - 03/16/2025 ANNI FUNG 1970 [id number] EXAM: MR BREAST BILAT W WO CONT W CAD, 03/16/2025 8:16 AM INDICATION: Left axillary mass., COMPARISON: A screening mammogram was performed on 02/09/2025. This was done at [facility]. Report of this examination is not available atthis time. As this was a screening mammogram, presumably the patient wasasymptomatic at that time. Patient had a bilateral axillary ultrasound at outside facility, [facility],dated 02/22/2025. At that time patient reported tenderness in the leftaxillary tail region. Report of that exam indicates possible abnormallymph node 1:00 left axillary tail. TECHNIQUE: Breast images obtained utilizing a 1.5T MRI with dedicatedbreast coil. Three-dimensional, high resolution fat suppressed T1 weightedimages were obtained prior to, immediately following, and after sequentialdelays relative to intravenous gadolinium contrast administration.Precontrast STIR and non-fat suppressed T1 axial images were also obtained. 3D imageand subtraction processing were performed using [employer] software. Theimages were interpreted using image subtraction, reregistration,multiplanar reconstruction, 2D and 3D acquisition and subtracted MIP, HERLINDA,Time Activity curves and color mapping. CONTRAST VOLUME: 16.7 mL ProHance FINDINGS: There is mild background enhancement bilaterally, symmetric. The breastcomposition is heterogeneous fibroglandular tissue. There are numerous small foci of enhancement present diffusely throughoutboth breasts. The multiplicity and similarity of these foci suggest abenign proliferative process/background breast tissue enhancement. Nodominant suspicious focus is present. Multiple small bilateral breast cysts are also noted. There are no dominant suspicious enhancing lesions and no significantaxillary or internal mammary lymphadenopathy. The skin, nipples and chestwall are unremarkable. IMPRESSION: Normal examination. No evidence for breast cancer or othersignificant finding. BI-RADS: BI-RADS 1 - Negative Recommendation: Follow up with referring physician Finalized by Yaz Lau MD on 03/16/2025 10:17 AM 1 F/U REFER DR us Valeriy Castellano DO IMG MRI ORDERABLES Final Re sult * Ultrasound breast limited left (02/22/2025 9:30 AM EDT) us Scanning Provider External IMG US ORDERABLES Fin al Result MANUALLY TRANSCRIBED RESULTS * SARS/FLU A+B/RSV by NAAT/Molecular (M4RT Collection Tube) (02/16/2025 10:06 PM EDT) FLU A PCR Negative Negative 02/16/2025 11:04 PM EDT [facility] FLU B PCR Negative Negative 02/16/2025 11:04 PM EDT [facility] RSV BY PCR Negative Negative 02/16/2025 11:04 PM EDT [facility] SARS COV 2 BY PCR Not Detected Not Detected 02/16/2025 11:04 PM EDT [facility] Swab Nasopharyngeal structure / Unknown 02/16/2025 10:06 PM EDT 02/16/2025 10:15 PM EDT Narrative [facility] - 02/16/2025 11:04 PM EDT The Xpert Xpress SARS-CoV-2/Flu/RSV Plus test is a rapid, multiplexed real-time RT-PCR test intended for the simultaneous qualitative detection and differentiation of SARS-CoV-2, influenza A, influenza B and respiratory syncytial virus (RSV) viral RNA from individuals suspected of respiratory viral infection consistent with COVID-19 by Their healthcare provider. This test has not been validated in asymptomatic patients. The Xpert Xpress SARS-CoV-2 test is intended for use by qualified and trained operators who are performing tests using either [employer] or [employer] systems and is limited to laboratories that meet the CLIA requirements to perform high and moderate complexity tests. The Xpert Xpress SARS-CoV-2/Flu/RSV Plus is only for use under the Food and Drug Administration's Emergency Use Authorization. Results are for the simultaneous detection and differentiation of SARS-CoV-2, influenza A, influenza B and RSV nucleic acids in clinical specimens. SARS-CoV-2, influenza A, influenza B and RSV RNA identified by this test are generally detectable in upper respiratory samples during the acute phase of infection. Positive results are Indicative of the presence of the identified virus, but do not rule out bacterial infection or co-infection with other pathogens not detected by this test. Clinical correlation with patient history and other diagnostic information is necessary to determine patient infection status. The agent detected may not be the definite cause of disease. Negative results do not preclude SARS-CoV-2, influenza A, influenza B and RSV infection and should not be used as the sole basis for treatment or other patient management decisions. Negative results must be combined with clinical observations, patient history and epidemiological information. An Invalid result may occur with specimen-associated inhibition unable to be resolved with specimen repeat. Fact Sheet for Healthcare Providers: https://www.fda.gov/media/548801/download Fact Sheet for Patients: https://www.fda.gov/media/846861/download Williams Moreno MD MICROBIOLOGY - GENERAL ORDERABL ES Final Result Performing Organization Address [facility] Co de Phone Number [facility] [address] [place] [address], * Mammography screening bilateral with CAD (02/09/2025 8:40 AM EDT) Scanning Provider External IMG MAMMOGRAPHY ORDER COLEMAN Final Result Performing Organization Address [facility] Co de Phone Number MANUALLY TRANSCRIBED RESULTS * Colonoscopy (02/14/2022 9:44 AM EDT) 02/14/2022 9:44 AM EDT Narrative PM CARDIOVASCULAR - 02/14/2022 10:12 AM EDT [facility] Patient Name: Anni Fung Procedure Date No Time: 02/14/2022 CSN : [id number] Date of : 1970 Admit Type: Outpatient Age: 51 Room: [place] [address] Gender: Female Note Status: Finalized Attending MD: Valeriy Castellano DO Procedure: Colonoscopy Indications: Screening for colorectal malignant neoplasm, Family history of colon cancer in a first-degree relative before age 60 years Providers: Valeriy Castellano DO Referring MD: Valeriy Castellano DO Medicines: Propofol per Anesthesia Complications: No immediate complications. Procedure: After I obtained informed consent, the scope was passed under direct vision. Throughout the procedure, the patient's blood pressure, pulse, and oxygen saturations were monitored continuously. The [email or web address] [id number] #[id number] ADULT COLONOSCOPE was introduced through the anus and advanced to the cecum, identified by appendiceal orifice and ileocecal valve. The colonoscopy was performed without difficulty. The patient tolerated the procedure well. The quality of the bowel preparation was excellent. Findings: The perianal and digital rectal examinations were normal. The colon (entire examined portion) appeared normal. The exam was otherwise without abnormality on direct and retroflexion views. Estimated Blood Loss: Estimated blood loss: none. Impression: - The entire examined colon is normal. - The examination was otherwise normal on direct and retroflexion views. - No specimens collected. Recommendation: - Discharge patient to home. - Patient has a contact number available for emergencies. The signs and symptoms of potential delayed complications were discussed with the patient. Return to normal activities tomorrow. Written discharge instructions were provided to the patient. - Repeat colonoscopy in 5 years for screening purposes. - Return to my office PRN. Procedure Code(s): --- Professional --- G0121, Colorectal cancer screening; colonoscopy on individual not meeting criteria for high risk Diagnosis Code(s): --- Professional --- Z12.11, Encounter for screening for malignant neoplasm of colon Z80.0, Family history of malignant neoplasm of digestive organs CPT copyright 2020 [employer]. All rights reserved. The codes documented in this report are preliminary and upon certified lactation educator review may be revised to meet current compliance requirements. DO Valeriy Meza DO 02/14/2022 10:11:51 AM Number of Addenda: 0 Note Initiated On: 02/14/2022 9:44 AM Procedure Note Valeriy Castellano DO - 02/14/[address] [facility] Patient Name: Anni Fung Procedure Date No Time: 02/14/2022 CSN : [id number] Date of : 1970 Admit Type: Outpatient Age: 51 Room: [place] [address] Gender: Female Note Status: Finalized Attending MD: Valeriy Castellano DO Procedure: Colonoscopy Indications: Screening for colorectal malignant neoplasm, Family history of colon cancer in a first-degree relative before age 60 years Providers: Valeriy Castellano DO Referring MD: Valeriy Castellano DO Medicines: Propofol per Anesthesia Complications: No immediate complications. Procedure: After I obtained informed consent, the scope was passed under direct vision. Throughout theprocedure, the patient's blood pressure, pulse, and oxygen saturations were monitored continuously. [email or web address] [id number] #[id number] ADULT COLONOSCOPE was introduced through the anus and advanced to the cecum,identified by appendiceal orifice and ileocecal valve. The colonoscopy was performed without difficulty. The patient tolerated the procedure well. The qualityof the bowel preparation was excellent. Findings: The perianal and digital rectal examinations were normal. The colon (entire examined portion) appeared normal. The exam was otherwise without abnormality on direct and retroflexion views. Estimated Blood Loss: Estimated blood loss: none. Impression: - The entire examined colon is normal. - The examination was otherwise normal on directand retroflexion views. - No specimens collected. Recommendation: - Discharge patient to home. - Patient has a contact number available for emergencies. The signs and symptoms of potential delayed complications were discussed with thepatient. Return to normal activities tomorrow. Written discharge instructions were provided to thepatient. - Repeat colonoscopy in 5 years for screeningpurposes. - Return to my office PRN. Procedure Code(s): --- Professional --- G0121, Colorectal cancer screening; colonoscopy on individual not meeting criteria for high risk Diagnosis Code(s): --- Professional --- Z12.11, Encounter for screening for malignant neoplasm of colon Z80.0, Family history of malignant neoplasm of digestive organs CPT copyright 2020 [employer]. All rights reserved. The codes documented in this report are preliminary and upon certified lactation educator reviewmay be revised to meet current compliance requirements. DO Valeriy Meza DO 02/14/2022 10:11:51 AM Number of Addenda: 0 Note Initiated On: 02/14/2022 9:44 AM us Valeriy Castellano DO GI PROCEDURE ORDERABLES Fin al Result PM CARDIOVASCULAR from Last 3 Months or Most Recently Relevant to Health Maintenance Insurance [facility] MEDICAID Care Teams Pediatric Nurse Practitioner Relationship Specialty Start Date End Date Isaiah Jones MD [address] [place] [address] PCP - General Family Medicine 02/28/25
--- OUTSIDE RECORDS SUMMARY | 2025-04-04 10:04 | XMS_ITS | Encounter Summary ---
Author Organization [facility] Address [facility] [place] [address] Care Team Providers Care Software Support Representative Name Role Phone Isaiah Jones MD Primary Care Provider [phone] Silvestre Washburn Unavailable [phone] Richard Parekh MD Unavailable [phone] Source Comments In the event this information is protected by the Federal Confidentiality of Alcohol and Drug AbusePatient Records regulations: The Federal rules restrict any use of the information to criminally investigate or prosecute any alcohol or drug abuse patient.[facility] Encounter Details Date Type Department Care Team (Late st Contact Info) Description 11/15/2024 Patient Msg Gastroenterology [address] [id number] Pam Lang MD [address] [place] [address] follow up Social History Tobacco Use Types [...] N ot on file 09/27/2020 Data from: https://www.neighborhoodatlas.medicine.[facility]/. Last address used for calculation Not [...] 9:00 AM EDT Office Visit Rheumatology [address] [facility] [address] [place], [place] [id number] Parul Turcios MD [address] [place] [id number] /fibro fu OV 6-12months. 05/09/2025 9:00 AM EDT Office Visit Allergy [address] [place] [id number] Kaia Ansari MD [address] [place] [address] Return in about 6 months (around 05/08/2025). 06/15/2025 9:30 AM EDT Office Visit Cardiology [address] [place] [address] Seda Solorio APRN.[facility] [address] [place], [place] [id number] 1 yr f/u documented as of this encounter Visit Diagnoses Not on filedocumented in this encounter Care Teams Software Support Representative Relationship Specialty Start Date End Date Isaiah Jones MD PCP - General Family Medicine 09/26/15 Silvestre Washburn Referring Podiatry 10/31/15 [place] [address] [place], [place] [phone] Cut Off Operator Scorer Cardiology 06/16/24 documented as of this encounter
--- OUTSIDE RECORDS SUMMARY | 2025-04-04 10:04 | XMS_ITS | Encounter Summary ---
Author Organization [facility] Address [address] [place] [address] Care Team Providers Care Senior Sql Server Database Developer Name Role Phone Isaiah Jones MD Primary Care Provider [phone] Silvestre Washburn Unavailable [phone] Richard Parekh MD Unavailable [phone] Source Comments In the event this information is protected by the Federal Confidentiality of Alcohol and Drug AbusePatient Records regulations: The Federal rules restrict any use of the information to criminally investigate or prosecute any alcohol or drug abuse patient.[facility] Encounter Details Date Type Department Care Team (Late st Contact Info) Description 07/11/2024 [place] [address] Provider, Ccf Questionnaire Submission Social History Tobacco Use Types Packs/Day Years [...] N ot on file 09/27/2020 Data from: https://www.neighborhoodatlas.medicine.[facility].edu/. Last address used for calculation Not on [...] Visit Rheumatology [address] [place] [address] Parul Turcios MD [address] [place] [address] /daniela camilo OV 6-12months. 05/09/2025 9:00 AM EDT Office Visit Allergy [address] [place] [address] Kaia Ansari MD [address] [place], [place] [phone] Return in about 6 months (around 05/08/2025). 06/15/2025 9:30 AM EDT Office Visit Cardiology [address] [place], [place] [phone] Seda Solorio APRN.[facility] [address] [place], [place] [phone] 1 yr f/u documented as of this encounter Visit Diagnoses Not on filedocumented in this encounter Care Teams Senior Sql Server Database Developer Relationship Specialty Start Date End Date Isaiah Jones MD PCP - General Family Medicine 09/26/15 Silvestre Washburn Referring Podiatry 10/31/15 [place] [address] [place] [address] Engine Hostler Cardiology 06/16/24 documented as of this encounter
--- OUTSIDE RECORDS SUMMARY | 2025-04-04 10:04 | XMS_ITS | Encounter Summary ---
Author Organization [facility] Address [address] [place] [address] Care Team Providers Care Receiving Weigher Name Role Phone Isaiah Jones MD Primary Care Provider [phone] Silvestre Washburn Unavailable [phone] Farnaz Church Unavailable Unavailable Richard Parekh MD Unavailable [phone] Source Comments In the event this information is protected by the Federal Confidentiality of Alcohol and Drug AbusePatient Records regulations: The Federal rules restrict any use of the information to criminally investigate or prosecute any alcohol or drug abuse patient.[facility] Encounter Details Date Type Department Care Team (Late st Contact Info) Description 04/08/2017 Patient Msg Cardiology [address] [place] [address] Cassius Omalley MD [address] [place] [phone] Request an Appointment Social History Tobacco Use [...] 9:00 AM EDT Office Visit Rheumatology [address] [place] [address] Parul Turcios MD [address] [place] [address] /fibro leslee OV 6-12months. 05/09/2025 9:00 AM EDT Office Visit Allergy [address] [place] [phone] Kaia Ansari MD [address] [place] [address] Return in about 6 months (around 05/08/2025). 06/15/2025 9:30 AM EDT Office Visit Cardiology [address] [place] [address] Seda Solorio APRN.[facility] [address] [place] [address] 1 yr f/u documented as of this encounter Visit Diagnoses Not on filedocumented in this encounter Care Teams Receiving Weigher Relationship Specialty Start Date End Date Isaiah Jones MD PCP - General Family Medicine 09/26/15 Silvestre Washburn Referring Podiatry 10/31/15 Farnaz Church LISW Powertrain Engineer Primary Care 04/02/24 04/06/24 [place] [address] [place] [address] Salon Assistant Cardiology 06/16/24 documented as of this encounter
--- OUTSIDE RECORDS SUMMARY | 2025-04-04 10:04 | XMS_ITS | Encounter Summary ---
Author Organization [facility] Address [address] [place] [address] Care Team Providers Care Ribbon Hanking Machine Operator Name Role Phone Isaiah Jones MD Primary Care Provider [phone] Silvestre Washburn Unavailable [phone] Farnaz Church Unavailable Unavailable Richard Parekh MD Unavailable [phone] Source Comments In the event this information is protected by the Federal Confidentiality of Alcohol and Drug AbusePatient Records regulations: The Federal rules restrict any use of the information to criminally investigate or prosecute any alcohol or drug abuse patient.[facility] Reason for Visit * Reason Comments Radiology XR Encounter Details Date Type Department Care Team (Late st Contact Info) Description 09/17/2021 Radiology Radiology [address] [place] [address] Guillermo Nixon, RT(R) Radiology XR Social History Tobacco Use Types Packs/Day Years [...] N ot on file 09/27/2020 Data from: https://www.neighborhoodatlas.medicine.[facility].edu/. Last address used for calculation [...] Exposure Response Date Recorded In the last month, have you been in contact with someone who was confirmed or suspected to have Coronavirus / COVID-19? No / Unsure 09/17/2021 10:48 AM EST documented as of this encounter Functional [...] of Assessment Author Yes 11/01/2015 11:50 AM rTe [facility] * Do you have [...] [facility] documented in this encounter Progress Notes * Guillermo Whitley, RT(R) - 09/17/2021 11:46 AM EST Radiology Service Progress Note PATIENT NAME: Anni Fung DATE OF SERVICE: September 17, 2021 TIME: 11:46 AM PATIENT IDENTITY VERIFICATION COMPLETED USING TWO (2) IDENTIFIERS: Name and Date of confirmedby patient verbally. FALL SCREENING: Has the patient had 2 falls in the last year or 1 fall with injury or currently using an Ambulatory Assistive Device (Walker, Cane, Wheelchair, Crutches, etc.)? No PATIENT GENDER DATA: Female. status: : No status: NO. PATIENT RELEVANT IMPLANT DATA REVIEWED: Not Applicable RADIOLOGY DEPARTMENT: General X-ray: Exam(s) Completed: Rib X-Ray: Right and Wt. Bearing Spine X-Ray(s): Cervical AP / LAT / OBL Lower Extremity X-Ray(s): Feet, Bilateral and Wt. Bearing Upper Extremity X-Ray(s): Hand, bilateral PERIPHERAL IV DATA: Not applicable SIGNED BY: RT Nasir(R) September 17, 2021 11:46 AM documented in this encounter Plan of Treatment Upcoming Encounters Date Type Department Care Team (Late st Contact Info) Description 04/18/2025 9:00 AM EDT Office Visit Rheumatology [address] [place] [address] Parul Turcios MD [address] [place] [address] /fibro fu OV 6-12months. 05/09/2025 9:00 AM EDT Office Visit Allergy [address] [place] [phone] Kaia Ansari MD [address] [place] [address] Return in about 6 months (around 05/08/2025). 06/15/2025 9:30 AM EDT Office Visit Cardiology [address] [place], [place] [phone] Seda Solorio APRN.[employer] PAN OPERATOR [address] [place] [address] 1 yr f/u documented as of this encounter Visit Diagnoses Not on filedocumented in this encounter Care Teams Ribbon Hanking Machine Operator Relationship Specialty Start Date End Date Isaiah Jones MD PCP - General Family Medicine 09/26/15 Silvestre Washburn Referring Podiatry 10/31/15 Farnaz Church LISW Rn Surgical Pcu Primary Care 04/02/24 04/06/24 [place] [address] [place] [address] Mortgage Accounting Clerk Cardiology 06/16/24 documented as of this encounter
--- OUTSIDE RECORDS SUMMARY | 2025-04-04 10:04 | XMS_ITS | Encounter Summary ---
Author Organization [facility] Address [id number] [address] [place] [address] Care Team Providers Care Densitometrist Name Role Phone Isaiah Jones MD Primary Care Provider Reason for Visit * Reason Comments Med Refill Encounter Details Date Type Department Care Team (Late st Contact Info) Description 09/13/2020 Refill [facility] [address] [place] [address] Dilip Jama MD PhD [address] [address] RETIRED 05/19/2024 [place] [address] Hypothyroidism, unspecified type Social History Tobacco Use Types Packs/Day Years Used Date Smoking Tobacco: Never Smokeless Tobacco: Never Alcohol Use Standard Drinks/Week Comments No 0 (1 standard drink = 0.6 oz pur e alcohol) PHQ-2 Answer Date Recorded Total Score 0 08/02/2020 Childcare Answer Date Recorded Childcare Unknown 03/24/2019 Employment Answer Date Recorded Employment Unknown 03/24/2019 Comments No Sex and Gender Information Value Date Recorded Sex Assigned at Female 07/21/2018 8:42 AM EDT Legal Sex Female 9:04 PM EDT Gender Identity Female 07/21/2018 8:42 AM EDT Sexual Orientation Straight 07/21/2018 8: 42 AM EDT documented as of this encounter Plan of Treatment Upcoming Encounters Date Type Department Care Team (Late st Contact Info) Description 04/14/2025 8:00 AM EDT Appointment [facility] - Radiation Oncology [address] [place] [address] Susanna Weller, [facility] [address] [address] documented as of this encounter Visit Diagnoses Diagnosis Hypothyroidism, unspecified type documented in this encounter Additional Health Concerns Assessment Noted Time PHQ-9 Depression Total Score: 0 08/02/20 20 12:52 PM EDT documented as of this encounter Care Teams Densitometrist Relationship Specialty Start Date End Date Isaiah Jones MD [address] [place] [address] PCP - General Family Medicine 02/28/25 documented as of this encounter
--- OUTSIDE RECORDS SUMMARY | 2025-04-04 10:04 | XMS_ITS | Encounter Summary ---
Author Organization [facility] Address [address] [place] [phone] Phone Care Team Providers Care Vibrator Operator Name Role Phone Unavailable Primary Care Provider Unavailabl e Reason for Referral * Imaging (Routine) - Pending Review Specialty Diagnoses / Procedures Referred By Kirill bhatt Referred To Contact Radiology Diagnoses Encounter for screening for cardiovascular disorders Procedures CT cardiac scoring [place] [address] [place] [address] Phone: tel: fax: Referral ID Status Reason Start Date Expiration Date Visits Requested Visits Authorized [id number] Pending Review Perform Procedure 03/03/2025 03/03/2026 1 1 Encounter Details Date Type Department Care Team (Late st Contact Info) Description 03/03/2025 Transcribe Orders [facility] [address] [place] [address] [place] [address] [place] [phone] Encounter for screening for cardiovascular disorders (Primary Dx) Social History Tobacco Use Types Packs/Day Years Used Date Smoking Tobacco: Never Assessed Comments Unknown Sex and Gender Information Value Date Recorded Sex Assigned at Not on file Legal Sex Female 2:57 PM EDT Gender Identity Not on file Sexual Orientation Not on file documented as of this encounter Plan of Treatment Upcoming Encounters Date Type Department Care Team (Late st Contact Info) Description 04/20/2025 7:30 PM EDT Appointment [address] [address] Scheduled Orders Name Type Priority Associated Diagnoses Orde r Schedule CT cardiac scoring wo IV contrast Imaging Routine Encounter for screening for cardiovascular disorders Expected: 03/03/2025, Expires: 03/03/2026 documented as of this encounter Visit Diagnoses Diagnosis Encounter for screening for cardiovascular disorders- Primary documented in this encounter
--- OUTSIDE RECORDS SUMMARY | 2025-04-04 10:04 | XMS_ITS | Clinical Summary ---
Author Organization [facility] Address [address] [place] [address] Care Team Providers Care Sack Department Supervisor Name Role Phone Isaiah Jones MD Primary Care Provider [phone] Silvestre Washburn Unavailable [phone] Richard Parekh MD Unavailable [phone] Allergies Active Allergy Reactions Criticality Noted Date Comments Chicken Derived Other: See Comments 11/26/2021 states throat closes up Egg Other: See Comments 11/26/2021 states throat closes up Betamethasone Dipropionate GI Upset 11/26/2021 Sulfa (Sulfonamide Antibiotics) Other: See Comments 10/10/2015 Abd Pain Medications * This document contains information received from the source organization and may not represent a complete record from that organization. PV W-O [place]/FERROUS FUMARATE/FA (M-VIT ORAL) Take by mouth. Ac tive magnesium oxide (MAGOX) 400 mg tabletIndications :Fibromyalgia,Chr onic pain syndrome,Chronic daily headache Take 1 tablet by mouth once daily. 30 tablet 11 05/11/20 18 Active amitriptyline (ELAVIL) 25 mg tablet Take 25 mg by mouth daily at bedtime. 08/14/20 21 Active PREMARIN 0.625 mg tablet Take 0.625 mg by mouth once daily. 09/04/20 21 Active levothyroxine (SYNTHROID) 137 mcg tablet TAKE 1 TABLET(137 MCG) BY MOUTH DAILY 04/17/20 21 Active montelukast (SINGULAIR) 10 mg tablet Take 10 mg by mouth. 03/10/[address] (PROTONIX) 40 mg tablet TK 1 T PO BID 01/22/20 18 Active sucralfate (CARAFATE) 1 gram tablet TK 1 T PO QID 01/23/20 18 Active venlafaxine ER (EFFEXOR XR) 75 mg 24 hr capsule Take 75 mg by mouth once daily. 05/31/20 22 Active furosemide (LASIX) 40 mg tablet Take 40 mg by mouth once daily as needed. 05/31/20 22 Active fexofenadine (IZZY) 180 mg tablet Take 1 tablet by mouth once daily as needed. 90 tablet 3 09/18/20 22 Active EPINEPHrine (EPIPEN) 0.3 mg/0.3 mL auto-injector Inject 0.3 mL intramuscularly as needed. 2 Each 1 09/18/20 22 Active rizatriptan (MAXALT) 10 mg tabletIndications :Chronic migraine without aura without status migrainosus, not intractable Take 1 tablet (10 mg) by mouth as needed. AT ONSET OF HEADACHE. MAY REPEAT AFTER 2 HOURS. DO NOT EXCEED 30 MG PER DAY. 10 tablet 11 10/02/20 23 Active baclofen 10 mg tabletIndications :Chronic pain syndrome,Chronic bilateral low back pain without sciatica,Cervical wojciech 1 pill at night by mouth, as needed for spine pain 90 tablet 3 11/13/19 24 Active nabumetone (RELAFEN) 500 mg tabletIndications :Chronic bilateral low back pain without sciatica,Cervical wojciech Take 1 tablet by mouth two times a day. 180 tablet 3 11/13/19 24 Active fluticasone propionate (XHANCE) 93 mcg/actuation nasal spray Use 1 [place] in the nose two times a day. 1 Each 4 02/02/20 24 Active ergocalciferol 50,000 unit capsule (VITAMIN D2, DRISDOL)Indicatio ns:Vitamin D deficiency Take 1 capsule by mouth one time a week. 12 capsule 3 02/11/20 24 Active aripiprazole (ABILIFY ORAL) Take by mouth. Active budesonide (EOHILIA) 2 mg/10 mL suspension in packetIndications :Eosinophilic esophagitis Take 1 Packet by mouth two times a day. Do not mix with food or liquid. 1800 mL 3 06/30/20 24 025 Active RESTASIS 0.05 % ophthalmic emulsionIndicatio ns:Chronically dry eyes, bilateral USE 1 DROP IN BOTH EYES TWICE DAILY DIRECTED 60 Each 3 10/28/19 25 Active fluticasone-umecl idin-vilanter (TRELEGY ELLIPTA) 200-62.5-25 mcg inhalation powder Inhale 1 Puff as instructed once daily. 180 Each 3 11/08/19 25 Active albuterol-budeson sabina HFA (AIRSUPRA) 90-80 mcg/actuation inhalerIndication s:Moderate persistent asthma, uncomplicated (HCC) Inhale 2 Puffs as instructed every 4 hours as needed for wheezing/shortness of breath. Do not take more than 12 inhalations in a 24 hour period. 10.7 g 3 11/08/19 25 Active pregabalin (LYRICA) 150 mg capsuleIndication s:Neuropathic pain Take 1 capsule by mouth two times a day for 180 days. 60 capsule 5 5 1:03 PM EST 11/19/19 25 025 Active CPAP/BIPAP/OTHER Type .CPAPSettings into a note to see current settings/supplies/ DME information. 1 Each 11/29/19 25 052 Active Active Problems Problem Noted Date Diagnosed Date Obesity, Class I, BMI 30-34.9 06/16/2024 Bilateral groin pain 06/14/2024 Bilateral elbow joint pain 06/14/2024 Vitamin D deficiency 06/14/2024 Chronically dry eyes, bilateral 06/14/2024 Tinnitus, bilateral 01/05/2024 Sensorineural hearing loss ( SNHL) of left ear with unrestricted hearing of right ear 01/05/2024 LESTER (obstructive sleep apnea) 11/24/2023 Chronic hip pain, bilateral 11/13/2023 Chronic pain of both knees 11/13/2023 Chronic bilateral low back pain without sciatica 11/13/2023 Nasal polyps 01/17/2023 Other chronic sinusitis 01/17/2023 ANABEL positive 09/18/2021 Family history of rheumatoid arthritis Family history of systemic lupus erythematosus 1 11/18/2020 Long-term use of high-risk medication 09/18/2021 Memory changes 09/18/2021 Costochondritis, acute 09/18/2021 New daily persistent headache 09/18/2021 Rib pain on right side 09/18/2021 Chronic pain of both feet 09/18/2021 Cervicalgia 12/30/2017 Dizziness and giddiness 12/30/2017 Small fiber neuropathy 09/10/2016 Precordial pain 05/21/2016 Bilateral hand pain 11/28/2015 Essential hypertension 11/07/2015 Recurrent major depression in partial remission 11/01/2015 Chronic pain syndrome 11/01/2015 Total body pain 11/01/2015 Heart murmur Mitral valve prolapse Fibromyalgia Anemia H/O: rheumatic fever Multiple thyroid nodules GERD (gastroesophageal reflux disease) Resolved Problems Problem Noted Date Diagnosed Date Resolved Date Arthritis 03/11/2016 Overview (11/01/2015): cervical spine Encounters Date Type Department Care Team Description 04/01/2025 Telephone [id number] [place] [address] Richard Parekh MD 03/01/2025 Orders Only Cardiology [id number] [place] [address] Richard Parekh MD Encounter for screening for cardiovascular disorders (Primary Dx) 02/28/2025 Telephone [address] [place] [address] Richard Parekh MD Orders 01/11/2025 Telephone Cardiology [address] [place] [address] Richard Parekh MD CPAP Supplies from Last 3 Months Immunizations Immunization Administration Dates Next Due influenza (IIV3) vaccine, ag e 6 mo - 64 yr, trivalent (AFLURIA, FLULAVAL, FLUVIRIN, FLUZONE) 08/03/2024 Family History Medical History Relation Comments Cancer Father Arthritis Maternal Aunt 1 Asthma Maternal Aunt 1 Diabetes Maternal Aunt 2 Heart Failure Maternal Grandmother Hypertension Maternal Grandmother Multiple Sclerosis Maternal cousin Cancer Mother Systemic Lupus Erythematosus Paternal Grandmothe r Relation Status Comments Father Maternal Aunt 1 Maternal Aunt 2 Maternal Grandmother Maternal cousin Alive Mother Paternal Grandmother Social History Tobacco Use Types Packs/Day Years [...] N ot on file 09/27/2020 Data from: https://www.neighborhoodatlas.medicine.[facility]/. Last address used for calculation Not on file 09/27/2020 Comments No Sex and Gender Information Value Date Recorded Sex Assigned at Not on file Legal Sex Female 11:13 AM EST Gender Identity Not on file Sexual Orientation Not on file Occupation Industry Job Start Date Job End Date Disabled Not on file Not on file Not on file Last Filed Vital Signs Vital Sign Reading Time Taken Comments Blood Pressure 151/99 11/19/2024 8:32 AM EST Pulse 84 11/19/2024 8:32 AM EST Temperature 36.6 C (97.9 F) 08/19/2024 10:10 AM EDT Respiratory Rate 16 08/19/2024 11:43 AM EDT Oxygen Saturation 97% 11/19/2024 8:32 AM EST Inhaled Oxygen Concentration - - Weight 84.4 kg (186 lb 1.1 oz) 11/19/2024 8:32 A M EST Height 160 cm (5' 2.99 ) 08/28/2024 1:39 AM EST Body Mass Index 32.97 08/28/2024 1:39 AM EST Plan of Treatment Upcoming Encounters Date Type Department Care Team (Late st Contact Info) Description 04/18/2025 9:00 AM EDT Office Visit Rheumatology [address] [place] [address] Parul Turcios MD [address] [place], [place] [id number] /fibro fu OV 6-12months. 05/09/2025 9:00 AM EDT Office Visit Allergy [address] [place] [phone] Kaia Ansari MD [address] [place] [address] Return in about 6 months (around 05/08/2025). 06/15/2025 9:30 AM EDT Office Visit Cardiology [address] [place] [address] Seda Solorio APRN.PREP ROOM SUPERVISOR [address] [place], [place] [id number] 1 yr f/u Health Maintenance Due Date Last Done Comments Annual PCP Team Chronic Dise ase Visit 1990 Anxiety Screening 1990 DTaP,Tdap,Td Vaccine (1 - Tdap) 1991 Hepatitis B Vaccine (1 of 3 - 19+ 3-dose series) 1991 Pneumococcal Vaccine: 50+ (1 of 2 - PCV) 1991 Cervical Cancer Screening [address] Colonography 2017 Cologuard (FIT-DNA) 2017 Fecal Occult Blood 2017 Lipid Screening 2017 Sigmoidoscopy 2017 Shingrix Vaccine (1 of 2) 2022 Colonoscopy 02/14/2023 02/14/2022 Colorectal Cancer Screening 02/14/2023 Covid-19 Vaccine (1 - 2023-2 5 season) 2024 Diabetes Screening 11/13/2026 11/13/2023, 0 04/10/2023, 12/16/2022, Additional history exists Hepatitis C Screening Completed 04/18/2016, 016 HIV Screening Completed 12/05/2017 Influenza Vaccine Completed 08/03/2024, 08/09/2011 Procedures Procedure Name Priority Date/Time Associated Diagnosis Comments COMPREHENSIVE METABOLIC PANEL Routine 11/13/2023 10:02 AM EST Elevated LFTs HIV 1/2 COMBO WITH REFLEX TO DIFFERENTIATION Routine 12/05/2017 2:58 PM EST Small fiber neuropathy (HCC) HEP REMOTE PANEL BL Routine 04/18/2016 1 :52 PM EDT Dry eyes, bilateral from Last 3 Months or Most Recently Relevant to Health Maintenance Results * (ABNORMAL) COMP METABOLIC PANEL (11/13/2023 10:02 AM EST) Protein, Total 6.9 6.3 - 8.0 g/dL 11/14/2023 6:04 AM [facility] Albumin 4.3 3.9 - 4.9 g/dL 11/14/2023 6:04 AM [facility] Calcium, Total 9.7 8.5 - 10.2 mg/dL 11/14/2023 6:04 AM [facility] Bilirubin, Total <0.2(L) 0.2 - 1.3 mg/dL 11/14/2023 6:04 AM [facility] Alkaline Phosphatase 86 34 - 123 U/L 11/14/2023 6:04 AM EST [facility] AST 15 13 - 35 U/L 11/14/2023 6:04 AM [facility] ALT 11 7 - 38 U/L 11/14/2023 6:04 AM [facility] Glucose 99 74 - 99 mg/dL 11/14/2023 6:04 AM [facility] Comment: The [place] Diabetes Association (ADA) provides guidance for cutoff values for fasting glucose and random glucose. The ADA defines fasting as no caloric intake for at least 8 hours. Fasting plasma glucose results between 100 to 125 mg/dL indicate increased risk for diabetes (prediabetes). Fasting plasma glucose results greater than or equal to 126 mg/dL meet the criteria for diagnosis of diabetes. In the absence of unequivocal hyperglycemia, results should be confirmed by repeat testing. In a patient with classic symptoms of hyperglycemia or hyperglycemic crisis, random plasma glucose results greater than or equal to 200 mg/dL meet the criteria for diagnosis of diabetes. Reference: Standards of Medical Care in Diabetes 2016, [place] Diabetes Association. Diabetes Care. 2016.39(Suppl 1). BUN 18 7 - 21 mg/dL 11/14/2023 6:04 AM [facility] Creatinine 0.67 0.58 - 0.96 mg/dL 11/14/2023 6:04 AM [facility] Sodium 143 136 - 144 mmol/L 11/14/2023 6:04 AM EST [facility] Potassium 4.6 3.7 - 5.1 mmol/L 11/14/2023 6:04 AM EST [facility] Chloride 107(H) 97 - 105 mmol/L 11/14/2023 6:04 AM EST [facility] CO2 25 22 - 30 mmol/L 11/14/2023 6:04 AM EST [facility] Anion Gap 11 9 - 18 mmol/L 11/14/2023 6:04 AM EST [facility] Estimated Glomerular Filtration Rate 106 >=60 mL/min/1. 73m 11/14/2023 6:04 AM EST [facility] Comment:Estimated Glomerular Filtration Rate (eGFR) is calculated using the 2020 CKD-EPI creatinine equation. This equation utilizes serum creatinine, sex, and age as parameters. The creatinine assay has traceable calibration to isotope dilution- mass spectrometry. Refer to KDIGO guidelines for clinical interpretation. In patients with unstable renal function, e.g. those with acute kidney injury, the eGFR may not accurately reflect actual GFR. Blood BLOOD SPECIMEN / Unknown Venipuncture / Unknown 11/13/2023 10:02 AM EST 11/13/2023 10:02 AM EST Parul Turcios MD LABORATORY Final Result [facility] [address] [place] [address], * HIV 1,2 COMBO (AG/AB) (12/05/2017 2:58 PM EST) HIV 12 Combo (Ag/Ab) Non Reactive Non Reactive 12/05/2017 10:02 PM EST [facility] Comment: (NOTE) HIV Information: [place] Rev. Code 3701.243(E): This information has been disclosed to you from confidential records protected from disclosure by state law. You shall make no further disclosure of this information without the specific, written, and informed release of the individual to whom it pertains, or as otherwise permitted by state law. A general authorization for the release of medical or other information is not sufficient for the purpose of the release of HIV test results or diagnoses. Blood specimen (specimen) BLOOD SPECIMEN / Unknown 12/05/2017 2:58 PM EST 12/05/2017 3:00 PM EST Nicole(Hist) Margaret LABORATORY Final Result [facility] [address] [place] [address] * HEP REMOTE PANEL BL (04/18/2016 1:52 PM EDT) Hep B Core Ab, Total Negative Negative 04/18/2016 10:12 PM EDT [facility] Hep C Antibody IA Negative Negative 04/18/2016 10:12 PM EDT [facility] HBsAg Negative Negative 04/18/2016 10:12 PM EDT [facility] Hep B Surface Ab, Qual Negative Negative 04/18/2016 10:12 PM EDT [facility] Comment:NEGATIVE Blood specimen (specimen) BLOOD SPECIMEN / Unknown 04/18/2016 1:52 PM EDT 04/18/2016 1:54 PM EDT Kirby Mares MD LABORATORY Final Resul t Performing Organization Address City/[facility]/ZIP Co de Phone Number [facility] [address] [place] [address] from Last 3 Months or Most Recently Relevant to Health Maintenance Insurance [facility] [employer] MEDICAID [facility] Care Teams Sack Department Supervisor Relationship Specialty Start Date End Date Isaiah Jones MD PCP - General Family Medicine 09/26/15 Silvestre Washburn Referring Podiatry 10/31/15 [place] [address] [place] [address] Associate Professor Physician Cardiology 06/16/24
--- OUTSIDE RECORDS SUMMARY | 2025-04-04 10:04 | XMS_ITS | Encounter Summary ---
Author Organization [facility] Address [id number] [address] [place] [address] Care Team Providers Care Chief Clerk Shelter Name Role Phone Isaiah Jones MD Primary Care Provider Encounter Details Date Type Department Care Team (Late st Contact Info) Description 06/05/2022 Orders Only [facility] [address] [place] [address] Larissa Gil, PA-C [address] [facility] [address] [place], [place] [phone] Hypothyroidism, unspecified type Social History Tobacco Use Types Packs/Day Years Used Date Smoking Tobacco: Never Smokeless Tobacco: Never Alcohol Use Standard Drinks/Week Comments No 0 (1 standard drink = 0.6 oz pur e alcohol) PHQ-2 Answer Date Recorded Total Score 0 08/01/2021 Childcare Answer Date Recorded Childcare Unknown 03/24/2019 Employment Answer Date Recorded Employment Unknown 03/24/2019 Purpose - Life Answer Date Recorded Purpose and direction in life Unknown Comments No Sex and Gender Information Value Date Recorded Sex Assigned at Female 07/21/2018 8:42 AM EDT Legal Sex Female 9:04 PM EDT Gender Identity Female 07/21/2018 8:42 AM EDT Sexual Orientation Straight 07/21/2018 8: 42 AM EDT COVID-19 Exposure Response Date Recorded In the last month, have you been in contact with someone who was confirmed or suspected to have Coronavirus / COVID-19? No / Unsure 06/05/2022 2:55 PM EDT documented as of this encounter Plan of Treatment Upcoming Encounters Date Type Department Care Team (Late st Contact Info) Description 04/14/2025 8:00 AM EDT [facility]ment [facility] [address] [place] [address] Susanna Weller, [facility] [address] [address] documented as of this encounter Visit Diagnoses Diagnosis Hypothyroidism, unspecified type documented in this encounter Additional Health Concerns Assessment Noted Time PHQ-9 Depression Total Score: 0 08/01/20 21 10:02 AM EDT documented as of this encounter Care Teams Chief Clerk Shelter Relationship Specialty Start Date End Date Isaiah Jones MD [address] [place] [address] PCP - General Family Medicine 02/28/25 documented as of this encounter
--- OUTSIDE RECORDS SUMMARY | 2025-04-04 10:04 | XMS_ITS | Encounter Summary ---
Author Organization [facility] Address [address] [place] [address] Care Team Providers Care Destination Coordinator Name Role Phone Isaiah Jones MD Primary Care Provider [phone] Silvestre Washburn Unavailable Richard Parekh MD Unavailable [phone] Source Comments In the event this information is protected by the Federal Confidentiality of Alcohol and Drug AbusePatient Records regulations: The Federal rules restrict any use of the information to criminally investigate or prosecute any alcohol or drug abuse patient.[facility] Encounter Details Date Type Department Care Team (Late st Contact Info) Description 06/23/2024 [place] [address] Provider, [facility] Important changes to Wellness RX Refill policy Social History Tobacco Use Types Packs/Day Years [...] N ot on file 09/27/2020 Data from: https://www.neighborhoodatlas.medicine.[facility]/. Last address used for calculation Not [...] EDT Office Visit Rheumatology [address] [place] [address] Parul Turcios MD [address] [place] [address] /daniela fu OV 6-12months. 05/09/2025 9:00 AM EDT Office Visit Allergy [address] [place] [phone] Kaia Ansari MD [address] [place], [place] [phone] Return in about 6 months (around 05/08/2025). 06/15/2025 9:30 AM EDT Office Visit Cardiology [address] [place] [address] Seda Solorio APRN.[facility] [address] [place], [place] [id number] 1 yr f/u documented as of this encounter Visit Diagnoses Not on filedocumented in this encounter Care Teams Destination Coordinator Relationship Specialty Start Date End Date Isaiah Jones MD PCP - General Family Medicine 09/26/15 Silvestre Washburn Referring Podiatry 10/31/15 [place] [address] [place] [phone] Culinary Instructor Cardiology 06/16/24 documented as of this encounter
--- OUTSIDE RECORDS SUMMARY | 2025-04-04 10:04 | XMS_ITS | Encounter Summary ---
Author Organization [facility] Address [address] [place] [address] Care Team Providers Care Weight Caller Name Role Phone Isaiah Jones MD Primary Care Provider [phone] Silvestre Washburn Unavailable [phone] Farnaz Church Unavailable Unavailable Richard Parekh MD Unavailable [phone] Source Comments In the event this information is protected by the Federal Confidentiality of Alcohol and Drug AbusePatient Records regulations: The Federal rules restrict any use of the information to criminally investigate or prosecute any alcohol or drug abuse patient.[facility] Encounter Details Date Type Department Care Team (Late st Contact Info) Description 04/12/2016 Patient Msg Medical Records [address] [place] [address] Provider, [facility] Thyroid records Social History Tobacco Use Types Packs/Day Years [...] 9:00 AM EDT Office Visit Rheumatology [address] [place] [address] Parul Turcios MD [address] [place] [address] /fibro fu OV 6-12months. 05/09/2025 9:00 AM EDT Office Visit Allergy [address] [place] [phone] Kaia Ansari MD [facility] [place] [address] Return in about 6 months (around 05/08/2025). 06/15/2025 9:30 AM EDT Office Visit Cardiology [address] [place] [address] Seda Solorio APRN.EMERGENCY COMMUNICATIONS OFFICER [address] [place] [address] 1 yr f/u documented as of this encounter Visit Diagnoses Not on filedocumented in this encounter Care Teams Weight Caller Relationship Specialty Start Date End Date Isaiah Jones MD PCP - General Family Medicine 09/26/15 Silvestre Washburn Referring Podiatry 10/31/15 Farnaz Church LISW Theatre Manager Primary Care 04/02/24 04/06/24 [place] [address] [place], [place] [phone] Seating And Mobility Technologist Cardiology 06/16/24 documented as of this encounter
--- OUTSIDE RECORDS SUMMARY | 2025-04-04 10:04 | XMS_ITS | Encounter Summary ---
Author Organization [facility] Address [address] [place] [address] Care Team Providers Care Machine Steak Tenderizer Name Role Phone Isaiah Jones MD Primary Care Provider [phone] Silvestre Washburn Unavailable [phone] Richard Parekh MD Unavailable [phone] Source Comments In the event this information is protected by the Federal Confidentiality of Alcohol and Drug AbusePatient Records regulations: The Federal rules restrict any use of the information to criminally investigate or prosecute any alcohol or drug abuse patient.[facility] Encounter Details Date Type Department Care Team (Late st Contact Info) Description 07/27/2024 Patient [place] [place] [address] Provider, Ccf CT CALCUIM SCORING Social History Tobacco Use Types Packs/Day Years [...] on file 09/27/2020 Data from: https://www.neighborhoodatlas.medicine.[facility]/. Last address used for calculation [...] EDT Office Visit Rheumatology [address] [place] [address] Parul Turcios MD [address] [place] [address] /daniela camilo OV 6-12months. 05/09/2025 9:00 AM EDT Office Visit Allergy [address] [place] [phone] Kaia Ansari MD [address] [place], [place] [phone] Return in about 6 months (around 05/08/2025). 06/15/2025 9:30 AM EDT Office Visit Cardiology [address] [place], [place] [phone] Seda Solorio APRN.[facility] [address] [place], [place] [phone] 1 yr f/u documented as of this encounter Visit Diagnoses Not on filedocumented in this encounter Care Teams Machine Steak Tenderizer Relationship Specialty Start Date End Date Isaiah Jones MD PCP - General Family Medicine 09/26/15 Silvestre Washburn Referring Podiatry 10/31/15 [place] [address] [place], [place] [phone] Medical Manager Cardiology 06/16/24 documented as of this encounter
--- OUTSIDE RECORDS SUMMARY | 2025-04-04 10:04 | XMS_ITS | Encounter Summary ---
Author Organization [facility] Address [id number] [address] [place] [address] Care Team Providers Care Delivery Helper Name Role Phone Isaiah Jones MD Primary Care Provider [phone] Reason for Visit * Reason Comments Med Refill Encounter Details Date Type Department Care Team (Late st Contact Info) Description 05/14/2023 Refill [facility] [address] [place] [address] Larissa Gil, PA-C [address] [facility] [address] [place] [address] Hypothyroidism, unspecified type Social History [...] got money to buy more. Never True 10/30/2022 Within the past 12 months th e food we bought just didn't last and we didn't have money to get more. Never True 10/30/2022 Purpose - Life Answer Date Recorded Purpose [...] Description 04/14/2025 8:00 AM EDT Appointment [facility] - Radiation Oncology [address] [place] [address] Susanna Weller, [facility] [address] [address] documented as of this encounter Visit Diagnoses Diagnosis Hypothyroidism, unspecified type documented in this encounter Additional Health Concerns Assessment Noted Time PHQ-9 Depression Total Score: 0 08/01/20 21 10:02 AM EDT documented as of this encounter Care Teams Delivery Helper Relationship Specialty Start Date End Date Isaiah Jones MD [address] [place] [address] PCP - General Family Medicine 02/28/25 documented as of this encounter
--- OUTSIDE RECORDS SUMMARY | 2025-04-04 10:04 | XMS_ITS | Encounter Summary ---
Author Organization [facility] Address [id number] [address] [place] [address] Care Team Providers Care Administrative Nursing Supervisor Name Role Phone Isaiah Jones MD Primary Care Provider [phone] Reason for Visit * Reason Comments Med Refill Encounter Details Date Type Department Care Team (Late st Contact Info) Description 11/24/2019 Refill [facility] [address] [place] [address] Dilip Jama MD PhD [address] [address] RETIRED 05/19/2024 [place] [address] Social History Tobacco Use Types Packs/Day Years Used Date Smoking Tobacco: Never Smokeless Tobacco: Never Alcohol Use Standard Drinks/Week Comments No 0 (1 standard drink = 0.6 oz pur e alcohol) Childcare Answer Date Recorded Childcare Unknown 03/24/2019 Employment Answer Date Recorded Employment Unknown 03/24/2019 Comments No Sex and Gender Information Value Date Recorded Sex Assigned at Female 07/21/2018 8:42 AM EDT Legal Sex Female 9:04 PM EDT Gender Identity Female 07/21/2018 8:42 AM EDT Sexual Orientation Straight 07/21/2018 8: 42 AM EDT documented as of this encounter Miscellaneous Notes * Telephone Encounter - Dilip Jama MD PhD - 11/24/2019 9:13 AM EST Pt needs thyroid labs drawn and F/U appointment scheduled. documented in this encounter Plan of Treatment Upcoming Encounters Date Type Department Care Team (Late st Contact Info) Description 04/14/2025 8:00 AM EDT [facility]ment [facility] [address] [place] [address] Susanna Weller, [facility] [address] [address] documented as of this encounter Visit Diagnoses Not on filedocumented in this encounter Care Teams Administrative Nursing Supervisor Relationship Specialty Start Date End Date Isaiah Jones MD [address] [place] [address] PCP - General Family Medicine 02/28/25 documented as of this encounter
--- OUTSIDE RECORDS SUMMARY | 2025-04-04 10:04 | XMS_ITS | Encounter Summary ---
Author Organization [facility] Address [address] [place] [address] Care Team Providers Care Television Newscast Director Name Role Phone Isaiah Jones MD Primary Care Provider [phone] Silvestre Washburn Unavailable [phone] Farnaz Church Unavailable Unavailable Richard Parekh MD Unavailable [phone] Source Comments In the event this information is protected by the Federal Confidentiality of Alcohol and Drug AbusePatient Records regulations: The Federal rules restrict any use of the information to criminally investigate or prosecute any alcohol or drug abuse patient.[facility] Encounter Details Date Type Department Care Team (Late st Contact Info) Description 05/28/2023 Patient Msg Gastroenterology [address] [id number] [place] [address] [place] [address] Results Social History Tobacco Use Types Packs/Day Years [...] N ot on file 09/27/2020 Data from: https://www.neighborhoodatlas.medicine.[facility]/. Last address used for calculation Not [...] 9:00 AM EDT Office Visit Rheumatology [address] [facility] [place] [address] Parul Turcios MD [address] [facility] [address] [place] [id number] /fibro fu OV 6-12months. 05/09/2025 9:00 AM EDT Office Visit Allergy [address] [place] [address] Kaia Ansari MD [address] [place] [address] Return in about 6 months (around 05/08/2025). 06/15/2025 9:30 AM EDT Office Visit Cardiology [address] [place], [place] [id number] Seda Solorio APRN.CUSTOMER SERVICE TRAINER [address] [place], [place] [address] 1 yr f/u documented as of this encounter Visit Diagnoses Not on filedocumented in this encounter Care Teams Television Newscast Director Relationship Specialty Start Date End Date Isaiah Jones MD PCP - General Family Medicine 09/26/15 Silvestre Washburn Referring Podiatry 10/31/15 Farnaz Church LISW Senior Interaction Designer Primary Care 04/02/24 04/06/24 [place] [address] [place] [address] Auto Body Service Mechanic Cardiology 06/16/24 documented as of this encounter
--- OUTSIDE RECORDS SUMMARY | 2025-04-04 10:04 | XMS_ITS | Encounter Summary ---
Author Organization [facility] Address [facility] [place] [address] Care Team Providers Care Rib Bender Name Role Phone Isaiah Jones MD Primary Care Provider [phone] Silvestre Washburn Unavailable [phone] Farnaz Church Unavailable Unavailable Richard Parekh MD Unavailable [phone] Source Comments In the event this information is protected by the Federal Confidentiality of Alcohol and Drug AbusePatient Records regulations: The Federal rules restrict any use of the information to criminally investigate or prosecute any alcohol or drug abuse patient.[facility] Encounter Details Date Type Department Care Team (Late st Contact Info) Description 06/18/2017 Get Medical Advice Neurology [address] [place] [address] Nicole Robles(Hist) [address] [id number] RE: Non-Urgent Medical Question Social History Tobacco Use Types Packs/Day Years [...] 9:00 AM EDT Office Visit Rheumatology [address] [place] [address] Parul Turcios MD [address] [place] [address] /fibro fu OV 6-12months. 05/09/2025 9:00 AM EDT Office Visit Allergy [address] [place] [address] Kaia Ansari MD [address] [place] [address] Return in about 6 months (around 05/08/2025). 06/15/2025 9:30 AM EDT Office Visit Cardiology [address] [place] [address] Seda Solorio APRN.[facility] [address] [place] [address] 1 yr f/u documented as of this encounter Visit Diagnoses Not on filedocumented in this encounter Care Teams Rib Bender Relationship Specialty Start Date End Date Isaiah Jones MD PCP - General Family Medicine 09/26/15 Silvestre Washburn Referring Podiatry 10/31/15 Farnaz Church LISW E Business Project Manager Primary Care 04/02/24 04/06/24 [place] [address] [place] [address] Distillery Worker Cardiology 06/16/24 documented as of this encounter
--- OUTSIDE RECORDS SUMMARY | 2025-04-04 10:04 | XMS_ITS | Encounter Summary ---
Author Organization [facility] Address [address] [place] [address] Care Team Providers Care Pocket Operator Name Role Phone Isaiah Jones MD Primary Care Provider [phone] Silvestre Washburn Unavailable [phone] Farnaz Church Unavailable Unavailable Richard Parekh MD Unavailable [phone] Source Comments In the event this information is protected by the Federal Confidentiality of Alcohol and Drug AbusePatient Records regulations: The Federal rules restrict any use of the information to criminally investigate or prosecute any alcohol or drug abuse patient.[facility] Reason for Visit * Reason Comments Radiology XR Encounter Details Date Type Department Care Team (Late st Contact Info) Description 05/16/2022 Radiology Radiology [address] [place] [address] Luís Valentin RT(R) Radiology XR Social History Tobacco Use [...] N ot on file 09/27/2020 Data from: https://www.neighborhoodatlas.medicine.[facility].edu/. Last address used for calculation Not [...] was confirmed or suspected to have Coronavirus/COVID-19? Unable to assess 05/16/2022 12:20 PM EDT documented as of this encounter Functional Status [...] documented in this encounter Progress Notes * Luís Valentin, RT(R) - 05/16/2022 8:57 AM EDT Radiology Service Progress Note PATIENT NAME: Anni Fung DATE OF SERVICE: May 16, 2022 TIME: 8:57 AM PATIENT IDENTITY VERIFICATION COMPLETED USING TWO [...] Applicable RADIOLOGY DEPARTMENT: General X-ray: Exam(s) Completed: Lower Extremity X- Ray(s): Knee, AP / Lat / Tunne / Merchant Bilateral and Wt. Bearing PERIPHERAL IV DATA: Not applicable SIGNED BY: RT Leola(R) May 16, 2022 8:57 AM documented in this encounter Plan of Treatment Upcoming Encounters Date Type Department Care Team (Late st Contact Info) Description 04/18/2025 9:00 AM EDT Office Visit Rheumatology [address] [place] [address] Parul Turcios MD [address] [place] [address] /fibro fu OV 6-12months. 05/09/2025 9:00 AM EDT Office Visit Allergy [address] [place] [address] Kaia Ansari MD [address] [place] [address] Return in about 6 months (around 05/08/2025). 06/15/2025 9:30 AM EDT Office Visit Cardiology [address] [place], [place] [phone] Seda Solorio APRN.SALES FLOOR ASSOCIATE [address] [place] [address] 1 yr f/u documented as of this encounter Visit Diagnoses Not on filedocumented in this encounter Care Teams Pocket Operator Relationship Specialty Start Date End Date Isaiah Jones MD PCP - General Family Medicine 09/26/15 Silvestre Washburn Referring Podiatry 10/31/15 Farnaz Church LISW Social Work Supervisor Primary Care 04/02/24 04/06/24 [place] [address] [place] [address] Utilization Review Specialist Cardiology 06/16/24 documented as of this encounter
--- OUTSIDE RECORDS SUMMARY | 2025-04-04 10:04 | XMS_ITS | Encounter Summary ---
Author Organization [facility] Address [address] [place] [address] Care Team Providers Care E Commerce Marketing Analyst Name Role Phone Isaiah Jones MD Primary Care Provider [phone] Silvestre Washburn Unavailable [phone] Farnaz Church Unavailable Unavailable Richard Parekh MD Unavailable [phone] Source Comments In the event this information is protected by the Federal Confidentiality of Alcohol and Drug AbusePatient Records regulations: The Federal rules restrict any use of the information to criminally investigate or prosecute any alcohol or drug abuse patient.[facility] Encounter Details Date Type Department Care Team (Late st Contact Info) Description 09/19/2017 Patient Msg Endocrinology [address] [place], [place] [phone] Juli Valencia MD, PhD [address] [place], [place] [phone] RE: Request an Appointment Social History Tobacco [...] 9:00 AM EDT Office Visit Rheumatology 57[address] [place] [address] Parul Turcios MD [address] [place] [address] /fibro leslee OV 6-12months. 05/09/2025 9:00 AM EDT Office Visit Allergy [address] [place] [address] Kaia Ansari MD [address] [place] [address] Return in about 6 months (around 05/08/2025). 06/15/2025 9:30 AM EDT Office Visit Cardiology [address] [place] [address] Seda Solorio APRN.[facility] [address] [place] [address] 1 yr f/u documented as of this encounter Visit Diagnoses Not on filedocumented in this encounter Care Teams E Commerce Marketing Analyst Relationship Specialty Start Date End Date Isaiah Jones MD PCP - General Family Medicine 09/26/15 Silvestre Washburn Referring Podiatry 10/31/15 Farnaz Church LISW Etcher Aircraft Primary Care 04/02/24 04/06/24 [place] [address] [place] [address] Head Tennis Coach Cardiology 06/16/24 documented as of this encounter
--- OUTSIDE RECORDS SUMMARY | 2025-04-04 10:04 | XMS_ITS | Encounter Summary ---
Author Organization [facility] Address [id number] [address] [place] [address] Care Team Providers Care Behavioral Sciences Department Chair Name Role Phone Isaiah Jones MD Primary Care Provider Reason for Visit * Reason Onset Date Comments GENETICS 03/02/2025 CLERICAL Encounter Details Date Type Department Care Team (Late st Contact Info) Description 03/02/2025 Telephone [facility] -GENETICS [address] [facility] [address] [place] [address] Whit Guerrier, [facility] [address] [facility] [address] [place] [address] GENETICS (CLERICAL) Social History Tobacco Use Types Packs/Day Years [...] encounter Miscellaneous Notes * Telephone Encounter - Yessenia Leela - 03/02/2025 3:00 PM EDT 03/02/2025, 3:00 PM PT CALLED RE REFERRAL EXPLAINED OUR PROCESS AND CONFIRMED PHONE # DJO documented in this encounter Plan of Treatment Upcoming Encounters Date Type Department Care Team (Late st Contact Info) Description 04/14/2025 8:00 AM EDT Appointment [facility] On[facility] - Radiation Oncology [address] [place] [address] Susanna Weller, [facility] [address] [address] documented as of this encounter Visit Diagnoses Not on filedocumented in this encounter Additional Health Concerns Assessment Noted Time PHQ-9 Depression Total Score: 0 08/01/20 21 10:02 AM EDT documented as of this encounter Care Teams Behavioral Sciences Department Chair Relationship Specialty Start Date End Date Isaiah Jones MD [address] [place] [address] PCP - General Family Medicine 02/28/25 documented as of this encounter
--- OUTSIDE RECORDS SUMMARY | 2025-04-04 10:04 | XMS_ITS | Encounter Summary ---
Author Organization [facility] Address [address] [place] [address] Care Team Providers Care Lead Worker Of Housekeeping And Laundry Name Role Phone Isaiah Jones MD Primary Care Provider [phone] Silvestre Washburn Unavailable [phone] Richard Parekh MD Unavailable Source Comments In the event this information is protected by the Federal Confidentiality of Alcohol and Drug AbusePatient Records regulations: The Federal rules restrict any use of the information to criminally investigate or prosecute any alcohol or drug abuse patient.[facility] Encounter Details Date Type Department Care Team (Late st Contact Info) Description 08/19/2024 Patient Msg Neurology [address] [place] [address] Provider, Ccf Please confirm your sleep study to avoid cancellation, thank you! Social History Tobacco Use Types Packs/Day Years [...] N ot on file 09/27/2020 Data from: https://www.neighborhoodatlas.medicine.[facility]/. Last address used for calculation Not [...] Office Visit Rheumatology [address] [place] [address] Parul Turcios MD [address] [place] [address] /daniela camilo OV 6-12months. 05/09/2025 9:00 AM EDT Office Visit Allergy [address] [place] [address] Kaia Ansari MD [facility] [place] [address] Return in about 6 months (around 05/08/2025). 06/15/2025 9:30 AM EDT Office Visit Cardiology [address] [place], [place] [address] Seda Solorio APRN.ELECTROTYPE SERVICER [address] [place] [address] 1 yr f/u documented as of this encounter Visit Diagnoses Not on filedocumented in this encounter Care Teams Lead Worker Of Housekeeping And Laundry Relationship Specialty Start Date End Date Isaiah Jones MD PCP - General Family Medicine 09/26/15 Silvestre Washburn Referring Podiatry 10/31/15 [place] [address] [place] [address] Reproducer Cardiology 06/16/24 documented as of this encounter
--- OUTSIDE RECORDS SUMMARY | 2025-04-04 10:04 | XMS_ITS | Encounter Summary ---
Author Organization [facility] Address [address] [place] [address] Care Team Providers Care Costume Cutter Name Role Phone Isaiah Jones MD Primary Care Provider [phone] Silvestre Washburn Unavailable [phone] Richard Parekh MD Unavailable [phone] Source Comments In the event this information is protected by the Federal Confidentiality of Alcohol and Drug AbusePatient Records regulations: The Federal rules restrict any use of the information to criminally investigate or prosecute any alcohol or drug abuse patient.[facility] Encounter Details Date Type Department Care Team (Late st Contact Info) Description 11/19/2024 Patient Msg Rheumatology [address] [place] [address] Provider, Ccf Consults for Psychiatry and Psychology Social History Tobacco Use Types Packs/Day Years [...] N ot on file 09/27/2020 Data from: https://www.neighborhoodatlas.medicine.[facility].edu/. Last address used for calculation Not [...] EDT Office Visit Rheumatology [address] [place] [address] Parul Turcios MD [address] [place] [address] /fibro fu OV 6-12months. 05/09/2025 9:00 AM EDT Office Visit Allergy [address] [place] [address] Kaia Ansari MD [address] [place] [address] Return in about 6 months (around 05/08/2025). 06/15/2025 9:30 AM EDT Office Visit Cardiology [address] [place], [place] [address] Seda Solorio APRN.DESIGN ENGINEERING SPECIALIST [address] [place] [address] 1 yr f/u documented as of this encounter Visit Diagnoses Not on filedocumented in this encounter Care Teams Costume Cutter Relationship Specialty Start Date End Date Isaiah Jones MD PCP - General Family Medicine 09/26/15 Silvestre Washburn Referring Podiatry 10/31/15 [place] [address] [place], [place] [phone] General I Farmworker Cardiology 06/16/24 documented as of this encounter
--- OUTSIDE RECORDS SUMMARY | 2025-04-04 10:04 | XMS_ITS | Encounter Summary ---
Author Organization [facility] Address [address] [place] [address] Care Team Providers Care Gang Head Saw Operator Name Role Phone Isaiah Jones MD Primary Care Provider [phone] Silvestre Washburn Unavailable [phone] Richard Parekh MD Unavailable [phone] Source Comments In the event this information is protected by the Federal Confidentiality of Alcohol and Drug AbusePatient Records regulations: The Federal rules restrict any use of the information to criminally investigate or prosecute any alcohol or drug abuse patient.[facility] Encounter Details Date Type Department Care Team (Late st Contact Info) Description 08/12/2024 Patient Msg Gastroenterology [address] [place] [address] Provider, Ccf EGD Social History Tobacco Use Types Packs/Day Years [...] N ot on file 09/27/2020 Data from: https://www.neighborhoodatlas.medicine.[facility].edu/. Last address used for calculation Not on [...] Visit Rheumatology [address] [place] [address] Parul Turcios MD [address] [place] [address] /fibro fu OV 6-12months. 05/09/2025 9:00 AM EDT Office Visit Allergy [address] [place] [address] Kaia Ansari MD [facility] [place], [place] [phone] Return in about 6 months (around 05/08/2025). 06/15/2025 9:30 AM EDT Office Visit Cardiology [address] [phone] Seda Solorio APRN.BOLT MAN [address] [place] [address] 1 yr f/u documented as of this encounter Visit Diagnoses Not on filedocumented in this encounter Care Teams Gang Head Saw Operator Relationship Specialty Start Date End Date Isaiah Jones MD PCP - General Family Medicine 09/26/15 Silvestre Washburn Referring Podiatry 10/31/15 [place] [address] [place], [place] [phone] Decal Cutter Cardiology 06/16/24 documented as of this encounter
--- OUTSIDE RECORDS SUMMARY | 2025-04-04 10:04 | XMS_ITS | Encounter Summary ---
Author Organization [facility] Address [facility] [place] [address] Care Team Providers Care Nutrition Assistant Name Role Phone Isaiah Jones MD Primary Care Provider [phone] Silvestre Washbrun Unavailable [phone] Richard Parekh MD Unavailable [phone] Source Comments In the event this information is protected by the Federal Confidentiality of Alcohol and Drug AbusePatient Records regulations: The Federal rules restrict any use of the information to criminally investigate or prosecute any alcohol or drug abuse patient.[facility] Encounter Details Date Type Department Care Team (Late st Contact Info) Description 07/14/2024 Patient Msg Gastroenterology [address] [phone] Pam Lang MD [address] [place] [address] follow up Social History Tobacco [...] N ot on file 09/27/2020 Data from: https://www.neighborhoodatlas.medicine.[facility]/. Last address used for calculation Not [...] 9:00 AM EDT Office Visit Rheumatology [address] [facility] [place], [place] [address] Parul Turcios MD [address] [place] [id number] /fibro fu OV 6-12months. 05/09/2025 9:00 AM EDT Office Visit Allergy [address] [place] [address] Kaia Ansari MD [address] [place] [address] Return in about 6 months (around 05/08/2025). 06/15/2025 9:30 AM EDT Office Visit Cardiology [address] [place] [address] Seda Solorio APRN.[facility] [address] [place], [place] [address] 1 yr f/u documented as of this encounter Visit Diagnoses Not on filedocumented in this encounter Care Teams Nutrition Assistant Relationship Specialty Start Date End Date Isaiah Jones MD PCP - General Family Medicine 09/26/15 Silvestre Washburn Referring Podiatry 10/31/15 [place] [address] [place], [place] 8[address] Fabric Worker Supervisor Cardiology 06/16/24 documented as of this encounter
--- OUTSIDE RECORDS SUMMARY | 2025-04-04 10:04 | XMS_ITS | Encounter Summary ---
Author Organization [facility] Address [address] [place], [place] [id number] Care Team Providers Care Associate Dean Name Role Phone Isaiah Jones MD Primary Care Provider [phone] Silvestre Washburn Unavailable [phone] Richard Parekh MD Unavailable [phone] Source Comments In the event this information is protected by the Federal Confidentiality of Alcohol and Drug AbusePatient Records regulations: The Federal rules restrict any use of the information to criminally investigate or prosecute any alcohol or drug abuse patient.[facility] Encounter Details Date Type Department Care Team (Late st Contact Info) Description 04/01/2025 Telephone Cardiology [address] [place] [address] [place] [address] [place] [address] Social History Tobacco Use Types Packs/Day Years [...] N ot on file 09/27/2020 Data from: https://www.neighborhoodatlas.medicine.[facility]/. Last address used for calculation [...] [place] documented in this encounter Miscellaneous Notes * Telephone Encounter - Marci Melendrez RN - 04/01/2025 10:54 AM EDT Office received fax from [facility] [place] for CPAP equipment orders. Form placed in Dr. Kruse office documented in this encounter Plan of Treatment Upcoming Encounters Date Type Department Care Team (Late st Contact Info) Description 04/18/2025 9:00 AM EDT Office Visit Rheumatology [address] [facility] [place] [address] Parul Turcios MD [address] [place] [address] /fibro fu OV 6-12months. 05/09/2025 9:00 AM EDT Office Visit Allergy [address] [place] [id number] Kaia Ansari MD [address] [place] [address] Return in about 6 months (around 05/08/2025). 06/15/2025 9:30 AM EDT Office Visit Cardiology [address] [place] [phone] Seda Solorio APRN.[facility] [address] [place] [address] 1 yr f/u documented as of this encounter Visit Diagnoses Not on filedocumented in this encounter Care Teams Associate Dean Relationship Specialty Start Date End Date Isaiah Jones MD PCP - General Family Medicine 09/26/15 Silvestre Washburn Referring Podiatry 10/31/15 [place] [address] [place], [place] [phone] [facility] Cardiology 06/16/24 documented as of this encounter
--- OUTSIDE RECORDS SUMMARY | 2025-04-04 10:04 | XMS_ITS | Encounter Summary ---
Author Organization [facility] Address [address] [place] [address] Care Team Providers Care Income Tax Advisor Name Role Phone Isaiah Jones MD Primary Care Provider [phone] Silvestre Washburn Unavailable [phone] Farnaz Church Unavailable Unavailable Richard Parekh MD Unavailable [phone] Source Comments In the event this information is protected by the Federal Confidentiality of Alcohol and Drug AbusePatient Records regulations: The Federal rules restrict any use of the information to criminally investigate or prosecute any alcohol or drug abuse patient.[facility] Encounter Details Date Type Department Care Team (Late st Contact Info) Description 09/19/2023 Patient Msg Neurology [address] [place] [address] Provider, Justin Leahy in the New Year Social History Tobacco Use Types Packs/Day Years [...] on file 09/27/2020 Data from: https://www.neighborhoodatlas.medicine.[facility].edu/. Last address used for calculation Not [...] EDT Office Visit Rheumatology [address] [place] [address] Parul Turcios MD [address] [place] [address] /fibro fu OV 6-12months. 05/09/2025 9:00 AM EDT Office Visit Allergy [address] [place] [phone] Kaia Ansari MD [address] [place], [place] [phone] Return in about 6 months (around 05/08/2025). 06/15/2025 9:30 AM EDT Office Visit Cardiology [address] [place], [place] [phone] Seda Solorio APRN.ACCOUNT SERVICES ANALYST [address] [place], [place] [phone] 1 yr f/u documented as of this encounter Visit Diagnoses Not on filedocumented in this encounter Care Teams Income Tax Advisor Relationship Specialty Start Date End Date Isaiah Jones MD PCP - General Family Medicine 09/26/15 Silvestre Washburn Referring Podiatry 10/31/15 Farnaz Church LISW Upper Cutter Out Primary Care 04/02/24 04/06/24 [place] [address] [place], [place] [phone] Garnishment Specialist Cardiology 06/16/24 documented as of this encounter
--- OUTSIDE RECORDS SUMMARY | 2025-04-04 10:04 | XMS_ITS | Encounter Summary ---
Author Organization [facility] Address [id number] [address] [place] [address] Care Team Providers Care Excelsior Machine Feeder Name Role Phone Isaiah Jones MD Primary Care Provider [phone] Reason for Visit * Reason Comments Med Refill Encounter Details Date Type Department Care Team (Late st Contact Info) Description 05/03/2019 Refill [facility] [address] [place] [address] Dilip Jama MD PhD [address] [address] RETIRED 05/19/2024 [place] [address] Social History Tobacco Use Types [...] Description 04/14/2025 8:00 AM EDT Appointment [facility] - Radiation Oncology [address] [place] [address] Susanna Weller, [facility] [address] [address] documented as of this encounter Visit Diagnoses Not on filedocumented in this encounter Care Teams Excelsior Machine Feeder Relationship Specialty Start Date End Date Isaiah Jones MD [address] [facility] [place] [address] PCP - General Family Medicine 02/28/25 documented as of this encounter
--- OUTSIDE RECORDS SUMMARY | 2025-04-04 10:04 | XMS_ITS | Encounter Summary ---
Author Organization [facility] Address [address] [place] [address] Care Team Providers Care Director Stage Name Role Phone Isaiah Jones MD Primary Care Provider [phone] Silvestre Washburn Unavailable [phone] Richard Parekh MD Unavailable [phone] Source Comments In the event this information is protected by the Federal Confidentiality of Alcohol and Drug AbusePatient Records regulations: The Federal rules restrict any use of the information to criminally investigate or prosecute any alcohol or drug abuse patient.[facility] Encounter Details Date Type Department Care Team (Late st Contact Info) Description 04/26/2024 Patient Msg Gastroenterology [address] [phone] Provider, [facility] Appointment Social History Tobacco Use Types Packs/Day [...] N ot on file 09/27/2020 Data from: https://www.neighborhoodatlas.medicine.[facility]/. Last address used for calculation [...] Visit Rheumatology [address] [place] [address] Parul uTrcios MD [address] [place] [address] /fibro fu OV 6-12months. 05/09/2025 9:00 AM EDT Office Visit Allergy [address] [place] [phone] Kaia Ansari MD [address] [place], [place] [phone] Return in about 6 months (around 05/08/2025). 06/15/2025 9:30 AM EDT Office Visit Cardiology [address] [place], [place] [phone] Seda Solorio APRN.CREPE BOX TENDER [address] [place], [place] [phone] 1 yr f/u documented as of this encounter Visit Diagnoses Not on filedocumented in this encounter Care Teams Director Stage Relationship Specialty Start Date End Date Isaiah Jones MD PCP - General Family Medicine 09/26/15 Silvestre Washburn Referring Podiatry 10/31/15 [place] [address] [place], [place] [phone] Weeder Thinner Cardiology 06/16/24 documented as of this encounter
[2025-04-04 10:28] LABS: Estimated Average Glucose 134 mg/dL; Glycohemoglobin A1C 6.3 % (4.5-6.2)
[2025-04-04 10:37] LABS: Basophils Absolute Auto 0.1 10^3/uL (0.0-0.1); Basophils Percent Auto 0.8 % (0.2-2.0); Eosinophils Absolute Auto 0.8 10^3/uL (0.0-0.7); Eosinophils Percent Auto 9.7 % (0.9-7.0); Hematocrit 39.8 % (36.0-48.0); Hemoglobin 12.8 g/dL (12.0-16.0); Immature Granulocytes Abs Auto 0.02 10^3/uL (0.00-0.03); Immature Granulocytes Pct Auto 0.2 % (0.0-0.5); Lymphocytes Absolute Auto 1.8 10^3/uL (1.2-3.8); Lymphocytes Percent Auto 21.1 % (20.5-60.0); Mean Corpuscular HGB Conc 32.2 g/dL (29.9-35.2); Mean Corpuscular Hemoglobin 29.5 pg (26.7-34.0); Mean Corpuscular Volume 91.7 fL (81.0-99.0); Mean Platelet Volume 11.7 fL (9.5-13.5); Monocytes Absolute Auto 0.6 10^3/uL (0.3-0.8); Monocytes Percent Auto 7.5 % (1.7-12.0); Neutrophils Absolute Auto 5.2 10^3/uL (1.4-6.5); Neutrophils Percent Auto 60.7 % (43.0-75.0); Platelet Count 271 10^3/uL (150-450); Red Blood Count 4.34 10^6/uL (4.20-5.40); Red Cell Distribution Width 12.8 % (11.0-15.0); White Blood Count 8.5 10^3/uL (4.0-11.0)
[2025-04-04 10:58] LABS: Alanine Aminotransferase 17 U/L (14-59); Albumin Level 3.4 g/dL (3.4-5.0); Alkaline Phosphatase 87 U/L (46-116); Anion Gap 12.1; Aspartate Amino Transferase 10 U/L (15-37); BUN Creatinine Ratio 21.2; Bilirubin Direct 0.1 mg/dL (0.0-0.2); Bilirubin Total 0.3 mg/dL (0.2-1.0); Calcium 9.3 mg/dL (8.5-10.1); Carbon Dioxide 28.2 mmol/L (21.0-32.0); Chloride 106 mmol/L (98-107); Estimated GFR (African America >60 (>=60 mL/min/1.73m^2); Estimated GFR (Non-African Ame >60 (>=60 mL/min/1.73m^2); Globulin 3.3 g/dL; Glucose 112 mg/dL (74-106); Potassium 4.3 mmol/L (3.5-5.1); Sodium 142 mmol/L (136-145); Thyroid Stimulating Hormone 5.111 uIU/mL (0.358-3.740); Total Protein 6.7 g/dL (6.4-8.2)
[2025-04-04 11:03] LABS: Free T4 0.83 ng/dL (0.76-1.46)
== END 2025-04-04 09:59 | disposition home or self-care (01) ==
PROVIDERS: PCP Family Medicine; Visit Provider Family Medicine
DX: Z79.899 Other long term (current) drug therapy (principal); E06.3 Autoimmune thyroiditis; R73.03 Prediabetes
CPT/HCPCS: 36415; 80048; 80076; 83036; 84439; 84443; 85025